=== PATIENT | female | born 1940 | race Caucasian/White ===

== ENCOUNTER 2017-06-11 15:09 | Inpatient (IN) | payer OTHER, MEDICARE ==
[~2017-06-11] VITALS: Ht 167.6 cm; Wt 70.3 kg
--- NOTE | 2017-06-11 15:27 | ED DYSPNEA/ASTHMA COMPLAINT ---
See Addendum History of Present Illness General Chief Complaint: Dyspnea (COPD, CHF, Other) Stated Complaint: BIBA FOR DIFFICULTY BREATHING Source: patient Exam Limitations: no limitations Vital Signs & Intake/Output Vital Signs & Intake/Output Vital Signs Date Time Temp Pulse Resp B/P B/P Pulse O2 O2 Flow FiO2 Mean Ox Delivery Rate 06/11 1734 129 162/77 06/11 1734 98 Nasal 2.0L Cannula 06/11 1612 115 06/11 1519 98.4 125 19 155/97 94 Room Air Triage Note: PT TO ED FROM URGENT CARE FOR EVAL OF SHORTNESS OF BREATH. RECEIVED ALBUTEROL TX AT . TACHYCARDIC IN 120S. 02 SAT 95% RA. FINISHED Z PACK AND PO STEROIDS 1ST WEEK OF MAY FOR BRONCHITIS. Triage Nurses Notes Reviewed? yes Onset: Gradual Duration: day(s): (1) Timing: recent history Severity: moderate Activities at Onset: none Prior Episodes/Possible Cause: occasional episodes Associated Symptoms: cough HPI: Patient is a 77-year-old female with history of lung cancer with resection, has been cancer free for 2 years now presenting to the emergency department via EMS with chief complaint of palpitations, shortness of breath, intermittently productive cough that started suddenly this morning. Positive malaise and generalized weakness. She went to the urgent care they did a strep test which was negative. Due to her fast heart rate and her oxygen levels they suggested she come to the emergency department for evaluation. Patient denying any chest pain. Patient was able to eat breakfast this morning without difficulty. Patient did have her influenza vaccine this year. Nothing seems to make the symptoms better, exertion makes the shortness of breath and palpitations worse. Denies any recent travel, no leg swelling. Denies hemoptysis. No history of blood clots. (Gena LIANG,Cynthia) Allergies Coded Allergies: ceftriaxone (From ROCEPHIN) (Severe, SWELLING ALL OVER, DARK RED ALL OVER, DYSPNEA 06/11/17) cefuroxime (From CEFTIN) (Severe, BODY SWELLING AND DARK RED ALL OVER, DYSPNEA 06/11/17) ciprofloxacin (From CIPRO) (Severe, SWELLING ALL OVER, DARK RED ALL OVER, DYSPNEA 06/11/17) gemifloxacin (From FACTIVE) (Intermediate, HIVES 06/11/17) aspirin (Mild, BLOODY NOSE 06/11/17) Reconcile Medications Budesonide/Formoterol Fumarate (Symbicort 160-4.5 Mcg Inhaler) 160 MCG-4.5 MCG/ ACTUATION HFA.AER.AD 2 PUF INH BID ASTHMA/COPD (Reported) Cetirizine HCl (All Day Allergy) 10 MG TABLET 1 TAB PO DAILY PRN ALLERGIES ( Reported) Levalbuterol HCl (Xopenex) 0.63 MG/3 ML VIAL.NEB 1 Vial INH/RAÚL TID PRN WHEEZING (Reported) Levalbuterol Tartrate (Xopenex Hfa) 45 MCG/ACTUATION HFA.AER.AD 2 PUF INH AD PRN ASTHMA/COPD (Reported) Olmesartan Medoxomil (Benicar) 40 MG TABLET 1 TAB PO DAILY BP (Reported) Tiotropium Britt (Spiriva Respimat) 1.25 MCG/ACTUATION MIST.INHAL 1 PUFF INH DAILY ASTHMA/COPD (Reported) Verapamil HCl 360 MG CAP24H.PEL 1 CAP PO DAILY HEART/BP (Reported) (Bogdan VELA,Peter Hagan) Past History Travel History Traveled to [place] past 21 day No Medical History Any Pertinent Medical History? 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 No (Gena LIANG,Cynthia) Review of Systems Review of Systems Constitutional: Reports: see HPI. Comments Review of systems: See HPI, All other systems negative. Constitutional, no chills fever or weight loss HEENT: No visual changes no Cardiovascular: No chest pain , orthopnea or ankle swelling Skin, no jaundice no rashes Respiratory: No hemoptysis GI: No nausea no vomiting : No dysuria No hematuria Muscle skeletal: no back pain, no neck pain, Neurologic: No numbness no confusion no headaches Psych: No stress anxiety or depression,. Heme/endocrine: No bruising no bleeding no polyuria or polydipsia Immunology: No splenectomy or history of AIDS (Cynthia Diaz) Physical Exam Physical Exam General Appearance: well developed/nourished, alert, awake, mild distress Respiratory: skin wheezing noted in the right upper and lower lobes. Left lung is clear to auscultation. Comments: Well-developed well-nourished person in no acute distress HEENT: Pupils equally round and reactive to light and accommodation. Nose is atraumatic. External auditory canal and Tympanic membranes clear. Pharynx moderately erythematous, petechiae noted on the hard palate, uvula midline. No tonsillar enlargement. No exudate. No swelling or edema. Neck: Supple, no lymphadenopathy, normal range of motion without pain or tenderness Back: Nontender Cardiovascular: Tachycardic rate and rhythms no murmurs rubs or gallops, normal JVP Respiratory: Chest nontender. mild respiratory distress.scant wheezing to auscultation to the right upper and lower lobes, left upper and lower lobe are clear to auscultation. Abdomen: Soft, nontender nondistended, no appreciable organomegaly. Normal bowel sounds. No ascites, no rebound or guarding. Extremity: No edema, no calf tenderness to palpation, normal and equal pulses. Neuro: Alert oriented x3 Skin: No appreciable rash on exposed skin, skin is warm and dry. Psych: Mood and affect is normal, memory and judgment is normal. Core Measures ACS in differential dx? Yes CVA/TIA Diagnosis No Sepsis Present: No Sepsis Focused Exam Completed? No (Cynthia Diaz) Progress Differential Diagnosis: asthma, AMI, bronchitis, costochondritis, CHF, COPD, musculoskeletal pain, pulmonary embolism, pneumonia, pneumothorax Plan of Care: Orders Procedure Date/time Status Heart Healthy Diet 06/12 B Active Patient Data 06/11 1834 Active EKG 06/11 1729 Active ED Holding Orders 06/11 1717 Active Admit to inpatient 06/11 1717 Active Vital Signs 06/11 1717 Active Code Status 06/11 1717 Active THROAT CULTURE W/QUICK STREP 06/11 1559 Active RAPID VIRAL INFLUENZA A 06/11 1550 Complete Telemetry/Accounting Manager Assistant Controller 06/11 1527 Active BLOOD CULTURE 06/11 1527 Active TROPONIN LEVEL 06/11 1527 Complete LACTIC ACID 06/11 152 Complete D-DIMER 06/11 1527 Complete COMPREHENSIVE METABOLIC PANEL 06/11 1527 Complete CBC WITHOUT DIFFERENTIAL 06/11 1527 Complete Intake & Output 06/11 1522 Active EKG 06/11 1513 Active Current Medications Sig/Tao Start time Last Medication Dose Stop Time Status Admin Sodium Chloride 1,000 ML ONCE ONE 06/11 1600 AC 06/11 (Normal Saline 0.9%) 06/11 2239 1610 Laboratory Tests 06/11/17 1827: Lactic Acid Cancelled 06/11/17 1545: Anion Gap 12, Estimated GFR > 60, BUN/Creatinine Ratio 22.9, Glucose 143 H, Lactic Acid 1.0, Calcium 9.4, Total Bilirubin 0.3, AST 23, ALT 30, Alkaline Phosphatase 105, Troponin I < 0.01, Total Protein 6.9, Albumin 4.3, Globulin 2.6 , Albumin/Globulin Ratio 1.7, D-Dimer High Sensitivty 201, CBC w Diff NO MAN DIFF REQ, RBC 4.17 L, MCV 96.6, MCH 32.3 H, MCHC 33.5, RDW 13.1, MPV 7.6, Gran % 93.7 H, Lymphocytes % 4.3 L, Monocytes % 1.7, Eosinophils % 0.1, Basophils % 0.2, Absolute Granulocytes 6.9 H, Absolute Lymphocytes 0.3 L, Absolute Monocytes 0.1, Absolute Eosinophils 0, Absolute Basophils 0 Microbiology 06/11 165 BLOOD: Blood Culture - CAN Cancelled: Cancelled via OE: Error 06/11 165 BLOOD: Blood Culture - CAN Cancelled: Cancelled via OE: Error 06/11 1558 NASOPHARYN: Influenza Virus A & B Rapid Smear - COMP 06/11 1545 BLOOD: Blood Culture - RECD 06/11 1530 BLOOD: Blood Culture - RECD Patient fell outpatient treatment, was on azithromycin by mouth. Came in for worsening symptoms. Patient has consolidation of right lower lobe. Patient requiring IV antibiotics. IV hydration will help with hyponatremia and tachycardia. Discussed with Dr. Perdomo and he agrees with plan. Diagnostic Imaging: Viewed by Me: Radiology Read. Discussed w/RAD: Radiology Read. Radiology Impression: PATIENT: REBECCA CROSS PRESENT AGE: 77 PATIENT ACCOUNT NO: [id number] : 38 LOCATION: [facility] [place] ORDERING PHYSICIAN: Cynthia LIANG SERVICE DATE: 06/11/17 EXAM TYPE: RAD - XRY-PORTABLE CHEST XRAY EXAMINATION: XR PORTABLE CHEST CLINICAL INFORMATION: Rule out pneumonia. Cough, tachycardia, and shortness of breath. COMPARISON: None TECHNIQUE: Portable frontal view of the chest was obtained. FINDINGS: There is elevation of the right hemidiaphragm and airspace opacity at the right lung base. This finding may represent atelectasis or consolidation. There is atelectasis at the left lung base. There is no large volume pleural effusion or pneumothorax. The left lung is hyperexpanded. The cardiomediastinal silhouette appears normal. The osseous structures are intact. IMPRESSION: 1. Elevation of the right hemidiaphragm with airspace opacity at the right lung base. This finding may represent atelectasis or consolidation. 2. Atelectasis at the left lung base. DICTATED BY: Marion Zimmerman MD DATE/TIME DICTATED:1548 [employer] ASSOCIATE:JULIA DATE/TIME TRANSCRIBED:06/11/171548 CONFIDENTIAL, DO NOT COPY WITHOUT APPROPRIATE AUTHORIZATION. <Electronically signed in Other Vendor System> SIGNED BY: Marion Zimmerman MD 06/11/17 4707 Initial ED EKG: sinus tachycardia 122 bpm (Cynthia Diaz) Departure Departure Time of Disposition: 1718 Condition: Stable Clinical Impression Primary Impression: Pneumonia Qualifiers: Pneumonia type: due to unspecified organism Laterality: right Lung location: lower lobe of lung Qualified Code: J18.1 - Lobar pneumonia, unspecified organism Secondary Impressions: Hyponatremia, Tachycardia Departure Forms: Customer Survey General Discharge Information (Cynthia Diaz) Departure Disposition: STILL A PATIENT Admission Note Spoke With: Bob VELA,Toyin Documentation of Exam: Documentation of any treatments & extenuating circumstances including Concerns Regarding Discharge (functional status, medication knowledge or non-compliance, living conditions, etc.) that warrant an admission rather than observation: [ FAILED OUTPATIENT TREATMENT, NEEDS IV ABX, IV FLUIDS, PULM CONSULT] PA/BEVERAGE HOST Co-Sign Statement Statement: ED Attending supervision documentation- [X] I saw and evaluated the patient. I have also reviewed all the pertinent lab results and diagnostic results. I agree with the findings and the plan of care as documented in the PA's/BEVERAGE HOST's documentation. [X] I have reviewed the ED Record and agree with the PA's/BEVERAGE HOST's documentation. [] Additions or exceptions (if any) to the PAs/BEVERAGE HOST's note and plan are summarized below: [SEE ABOVE NOTE] (Bogdan VELA,Peter Hagan) Critical Care Note Critical Care Note Critical Care Time: 30-74 min (Gena LIANG,Cynthia)
--- NOTE | 2017-06-11 15:59 | RADIOLOGY REPORT ---
EXAMINATION: XR PORTABLE CHEST CLINICAL INFORMATION: Rule out pneumonia. Cough, tachycardia, and shortness of breath. COMPARISON: None TECHNIQUE: Portable frontal view of the chest was obtained. FINDINGS: There is elevation of the right hemidiaphragm and airspace opacity at the right lung base. This finding may represent atelectasis or consolidation. There is atelectasis at the left lung base. There is no large volume pleural effusion or pneumothorax. The left lung is hyperexpanded. The cardiomediastinal silhouette appears normal. The osseous structures are intact. IMPRESSION: 1. Elevation of the right hemidiaphragm with airspace opacity at the right lung base. This finding may represent atelectasis or consolidation. 2. Atelectasis at the left lung base.
[2017-06-11 16:09] LABS: ABSOLUTE BASOPHIL COUNT 0 /CUMM (0.0-0.2); ABSOLUTE EOSINOPHIL COUNT 0 /CUMM (0.0-0.7); ABSOLUTE GRANULOCYTE CT 6.9 /CUMM (1.4-6.5); ABSOLUTE LYMPH COUNT 0.3 /CUMM (1.2-3.4); ABSOLUTE MONOCYTE COUNT 0.1 /CUMM (0.10-0.60); BASOPHIL % 0.2 % (0.0-2.0); EOSINOPHIL % 0.1 % (0-5); HEMATOCRIT 40.3 % (37-47); MEAN CORPUSCULAR HGB 32.3 PG (27.0-31.0); MEAN CORPUSCULAR HGB CONC 33.5 G/DL (33.0-37.0); MEAN CORPUSCULAR VOLUME 96.6 FL (81.0-99.0); MEAN PLATELET VOLUME 7.6 FL (7.4-10.4); PLATELET COUNT 253 /CUMM (130-400); RBC DISTRIBUTION WIDTH 13.1 % (11.5-14.5); RED BLOOD CELL CT 4.17 /CUMM (4.20-5.40); WHITE BLOOD CELL COUNT 7.4 /CUMM (4.8-10.8)
[2017-06-11 16:27] LABS: GRANULOCYTE % 93.7 % (42.2-75.2)
--- NOTE | 2017-06-11 17:28 | History & Physical ---
Tho VELA,[facility] 06/11/17 1727: General Information and HPI Allergies/Medications Allergies: Coded Allergies: gemifloxacin (From FACTIVE) (Intermediate, HIVES 06/11/17) aspirin (Mild, BLOODY NOSE 06/11/17) cefuroxime (From CEFTIN) (GI UPSET 06/11/17) ciprofloxacin (From CIPRO) (GI UPSET 06/11/17) Past History Travel History Traveled to [place] past 21 day No Medical History Neurological: NONE EENT: NONE Cardiovascular: hypertension Respiratory: BRONICHITIS Gastrointestinal: NONE Hepatic: NONE Renal: NONE Musculoskeletal: NONE Psychiatric: NONE Endocrine: NONE Blood Disorders: NONE Cancer(s): LUNG CA WELL DRILLER/Reproductive: NONE Influenza Vaccine: 01/20/17 Surgical History Surgical History: lobectomy Past Family/Social History Psychosocial History ETOH Use: denies use Illicit Drug Use: denies illicit drug use Core Measures/Misc (01/05) Cerebrovascular Accident CVA/TIA Diagnosis: No
--- NOTE | 2017-06-11 17:29 | History & Physical ---
Bladimir VELA,[facility] 06/11/17 8068: General Information and HPI MD Statement: I have seen and personally examined REBECCA CROSS and documented this H& P. The patient is a 77 year old F who presented with a patient stated chief complaint of [shortness of breath]. Source of Information: patient Exam Limitations: no limitations History of Present Illness: Mrs. Jeffrey is a 77-year-old lady with past medical history significant for COPD, asthma, hypertension and lung cancer status post resection(2016) presents with shortness of breath and cough which started this morning. According to the patient, she was in her usual state of health until this morning when she started having cough with clear color sputum production. Around afternoon she was going upstairs when she all of a sudden started feeling short of breath and weak. She felt something is wrong with her so instead of using her inhalers/nebulizers she went to the urgent care clinic where she was given a neb treatment and was sent to the [facility]. Also reports sore throat but denies any fever/chills, orthopnea, PND, sick contacts, recent travel or new rash. She did receive her flu like vaccine this year. Patient had acute bronchitis 2 weeks ago for which she completed a course of Z-Iain and prednisone. Allergies/Medications Allergies: Coded Allergies: ceftriaxone (From ROCEPHIN) (Severe, SWELLING ALL OVER, DARK RED ALL OVER, DYSPNEA 06/11/17) cefuroxime (From CEFTIN) (Severe, BODY SWELLING AND DARK RED ALL OVER, DYSPNEA 06/11/17) ciprofloxacin (From CIPRO) (Severe, SWELLING ALL OVER, DARK RED ALL OVER, DYSPNEA 06/11/17) gemifloxacin (From FACTIVE) (Intermediate, HIVES 06/11/17) aspirin (Mild, BLOODY NOSE 06/11/17) Home Med list Amoxicillin/Potassium Clav (Augmentin 875-125 Tablet) 875 MG-125 MG TABLET 1 TAB PO BID PNEUMONIA Budesonide/Formoterol Fumarate (Symbicort 160-4.5 Mcg Inhaler) 160 MCG-4.5 MCG/ ACTUATION HFA.AER.AD 2 PUF INH BID ASTHMA/COPD (Reported) Cetirizine HCl (All Day Allergy) 10 MG TABLET 1 TAB PO DAILY PRN ALLERGIES ( Reported) Levalbuterol HCl (Xopenex) 0.63 MG/3 ML VIAL.NEB 1 Vial INH/RAÚL TID PRN WHEEZING (Reported) Levalbuterol Tartrate (Xopenex Hfa) 45 MCG/ACTUATION HFA.AER.AD 2 PUF INH AD PRN ASTHMA/COPD (Reported) Olmesartan Medoxomil (Benicar) 40 MG TABLET 1 TAB PO DAILY BP (Reported) Prednisone 10 MG TABLET 1 TAB PO BID COPD On Take 06/14-06/16 40 MG 06/17-06/19 30 MG 06/20-06/22 20 MG 06/23-06/25 10 MG Then Stop Tiotropium Reasnor (Spiriva Respimat) 1.25 MCG/ACTUATION MIST.INHAL 1 PUFF INH DAILY ASTHMA/COPD (Reported) Verapamil HCl 360 MG CAP24H.PEL 1 CAP PO DAILY HEART/BP (Reported) Past History Travel History Traveled to [place] past 21 day No Medical History Neurological: NONE EENT: NONE Cardiovascular: hypertension Respiratory: asthma, COPD Gastrointestinal: NONE Hepatic: NONE Renal: NONE Musculoskeletal: NONE Psychiatric: NONE Endocrine: NONE Blood Disorders: NONE Cancer(s): LUNG CA BANKING SERVICES OFFICER/Reproductive: NONE Influenza Vaccine: 01/20/17 Surgical History Surgical History: none ((2016)), lobectomy Past Family/Social History Psychosocial History ETOH Use: denies use Illicit Drug Use: denies illicit drug use Review of Systems Review of Systems Constitutional: Reports: no symptoms. EENTM: Reports: throat pain. Cardiovascular: Reports: palpitations. Respiratory: Reports: cough, short of breath, sputum production. GI: Reports: no symptoms. Genitourinary: Reports: no symptoms. Musculoskeletal: Reports: no symptoms. Skin: Reports: no symptoms. Neurological/Psychological: Reports: no symptoms. Hematologic/Endocrine: Reports: no symptoms. Immunologic/Allergic: Reports: no symptoms. All Other Systems: Reviewed and Negative Exam & Diagnostic Data Last 24 Hrs of Vital Signs/I&O Vital Signs Date Time Temp Pulse Resp B/P B/P Pulse O2 O2 Flow FiO2 Mean Ox Delivery Rate 06/11 2100 97.2 114 19 155/75 97 Nasal Cannula 06/11 2034 113 96 Nasal 2.0L Cannula 06/11 1734 129 162/77 06/11 1734 98 Nasal 2.0L Cannula 06/11 1612 115 06/11 1519 98.4 125 19 155/97 94 Room Air Intake & Output 06/11 1600 06/11 0800 06/11 0000 Intake Total Output Total Balance Patient 155 lb Weight Weight Reported by Patient Measurement Method Physical Exam General Appearance Alert, Oriented X3, Cooperative Skin No Rashes, No Breakdown HEENT Atraumatic, PERRLA, EOMI, Mucous Membr. moist/pink, pharynx erythematous Neck Supple, No JVD, No thryomegaly Cardiovascular Regular Rate, Normal S1, Normal S2 Lungs Clear to Auscultation, decreased breath sounds on the left Abdomen Normal Bowel Sounds, Soft, No Tenderness Extremities No Clubbing, No Cyanosis, No Edema, Normal Pulses Last 24 Hrs of Labs/Angel: Laboratory Tests 06/11/17 1827: Lactic Acid Cancelled 06/11/17 1545: Anion Gap 12, Estimated GFR > 60, BUN/Creatinine Ratio 22.9, Glucose 143 H, Lactic Acid 1.0, Calcium 9.4, Total Bilirubin 0.3, AST 23, ALT 30, Alkaline Phosphatase 105, Troponin I < 0.01, Total Protein 6.9, Albumin 4.3, Globulin 2.6 , Albumin/Globulin Ratio 1.7, D-Dimer High Sensitivty 201, CBC w Diff NO MAN DIFF REQ, RBC 4.17 L, MCV 96.6, MCH 32.3 H, MCHC 33.5, RDW 13.1, MPV 7.6, Gran % 93.7 H, Lymphocytes % 4.3 L, Monocytes % 1.7, Eosinophils % 0.1, Basophils % 0.2, Absolute Granulocytes 6.9 H, Absolute Lymphocytes 0.3 L, Absolute Monocytes 0.1, Absolute Eosinophils 0, Absolute Basophils 0 Microbiology 06/11 1651 BLOOD: Blood Culture - CAN Cancelled: Cancelled via OE: Error 06/11 165 BLOOD: Blood Culture - CAN Cancelled: Cancelled via OE: Error 06/11 1558 NASOPHARYN: Influenza Virus A & B Rapid Smear - COMP 06/11 1545 BLOOD: Blood Culture - RECD 06/11 1530 BLOOD: Blood Culture - RECD Diagnostic Data CXR Results IMPRESSION: 1. Elevation of the right hemidiaphragm with airspace opacity at the right lung base. This finding may represent atelectasis or consolidation. 2. Atelectasis at the left lung base. Other Results CTA Chest IMPRESSION: 1. No evidence of PE. No aortic aneurysm or dissection seen. 2. Emphysema with left upper lobe pleural-based nodule and a 1.4 cm ground-glass density left upper lobe anteriorly. In addition, there is an adjacent parenchymal thickening likely scar or atelectasis in the left upper lobe anteriorly. Underlying primary lung tumor is not excluded. Recommend correlation with old CT chest or chest x-rays, if available. If not, recommend CT PET exam for further evaluation. Assessment/Plan Assessment: Mrs. Jeffrey is a 77-year-old lady with past medical history significant for COPD, asthma, hypertension and lung cancer status post resection(2016) presents with shortness of breath and cough which started this morning. A/P; Will admit the patient to Telemetry floor. 1. Shortness of Breath; Likely secondary to PD exacerbation from pneumonia. Patient does not have fever or white count but complains of SOB and productive cough with CXR showing bibasilar atelactasis. - Will start the patient on IV Unasyn. Patient was given ceftriaxone and azithromycin in the ED but were stopped due to an allergic reaction to ceftriaxone(shivering, pruritis and generalized raised erythematous papules). 2. continue Spiriva and symbicort. 3. Chloraseptic lozanges for sore throat. 4. Robitussin as needed for cough. 5. CTA to rule out PE given SOB and tachycardia. 2. 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 - Never seen a cardioloist in the past. - Cardiology Consult. - Continue Verapamil 360mg daily. - Echocardiogram 3. Hypertension; - Continue Cozar. 4. Hyponatremia; Na level 128. - Patient recieved 2L of normal saline in the ER. - Repeat BP in a.m. DVT Prophylaxis; S/C Lovenox Patient is DNR/DNI As Ranked By This Provider Problem List: 1. Pneumonia Qualifiers Pneumonia type: due to unspecified organism Laterality: right Lung location: lower lobe of lung Qualified Code: J18.1 - Lobar pneumonia, unspecified organism 2. Tachycardia Core Measures/Misc (01/05) Acute Coronary Syndrome ACS Diagnosis: No Congestive Heart Failure Congestive Heart Failure Diagnosis No Cerebrovascular Accident CVA/TIA Diagnosis: No VTE (View Protocol) VTE Risk Factors Age>40 No Mechanical VTE Prophylaxis d/t N/A MechProphylax Ordered No VTE Pharm Prophylaxis d/t NA PharmProphylax ordered Sepsis (View protocol) Sepsis Present: No Aicha Faustin MD 06/11/172109: Resident Review Statement Resident Statement: examined this patient, discussed with post graduate internship, agreed with post graduate internship Other Findings: 77-year-old lady with past medical history of COPD, asthma, hypertension and lung cancer status post resection (2016). She presents with shortness of breath and cough which started this morning. Her cough was productive of clear sputum and she began feeling short of breath with generalized weakness and mildly this morning. On account of her symptoms she went to the urgent care clinic and she was given nebulizer treatment with minimal relief. She was given a nebulizer treatment but on account of her fast heart rate and low oxygen level in the urgent care, she was sent to the ER for further evaluation. She admits to sore throat but denies fever/chills, orthopnea, PND, sick contacts, recent travel or new rash. She did receive her flu like vaccine this year. Of note patient had acute bronchitis 2 weeks ago and completed a course of Z-Iain and prednisone. Patient reports she has has a known history of tachycardia and was placed on verapamil by her primary care physician on account of this. She reportedly has never seen a field sales consultant in the past for this. Vital signs in the ER showed temperature of 90 8.4F, pulse of 125, respiratory rate 19, blood pressure 155/97 mmHg, pulse oximetry of 94% on room air. Physical Exam at presentation General Appearance: Alert, Oriented X3, Cooperative, mild respiratory distress Skin: No Rashes, No Breakdown HEENT: Atraumatic, PERRLA, EOMI, Mucous Membr. moist/pink, pharynx erythematous Neck: Supple, No JVD, No thryomegaly Cardiovascular: Regular Rate, Normal S1, Normal S2 Lungs: Clear to Auscultation, decreased breath sounds and fine crepitations in left lung base Abdomen: Normal Bowel Sounds, Soft, No Tenderness Extremities: No Clubbing, No Cyanosis, No Edema, Normal Pulses Labs significant for hyponatremia with sodium 128, potassium 4.7, creatinine 0.7 , lactic acid 1, troponin<0.01. D-dimer negative at 201. CBC shows WBC of 7.4, hemoglobin 13.5, platelet 253. Rapid flu test was negative and blood cultures are pending. Chest x-ray showed bibasilar atelectasis and elevation of the right hemidiaphragm. Impression 1. Community acquired pneumonia 2. Sinus tachycardia 3. Hyponatremia 4. Hypertension 5. History of COPD 6. History of right lower lobe lung cancer status post resection 2016 Plan * Admit to telemetry * Patient was started on IV ceftriaxone but had a reaction to ceftriaxone with pruritus, shortness of breath and red rash and needed diphenhydramine and Solu- Medrol administration. On account of this, and her prior reported allergies to ciprofloxacin, ofloxacin and cefuroxime, her antibiotic choices are very limited. We'll start IV Unasyn 1.5 g every 6 hours and watch closely for any reaction to this. * And discontinue IV is azithromycin after this one dose * No need for steroids at this time * Collect sputum cultures * Follow-up blood cultures * CT chest done was negative for pulmonary embolism but did show emphysema and multiple opacities protocol will call pulmonology consult in the morning. Given her past history of lung cancer we will also send workup for hyponatremia with serum osmolality, urine osmolality, urine lites * Pulmonology consult in the morning for hypoxemic respiratory failure and evaluation of opacities on CT chest * Doppler ultrasound of legs * Serial EKGs and troponins to rule out an acute coronary syndrome * Cardiology consultation in the morning for evaluation of sinus tachycardia * Patient reports she has has a known history of tachycardia and was placed on verapamil by her primary care physician on account of this. She reportedly has never seen a field sales consultant in the past for this. * Echocardiogram * Continue verapamil for sinus tachycardia * Continue Cozaar for hypertension * DVT prophylaxis with subcutaneous Lovenox * After discussion with patient, she states that her CODE STATUS is DNR/DNI as she doesn't want intubation and is consistent with her advanced directives Kev VELA, [facility] 06/11/17 1137: Attending MD Review Statement Attending Statement Attending MD Statement: examined this patient, discuss w/resident/PA/FUEL MANAGEMENT HANDLER, agreed w/resident/PA/FUEL MANAGEMENT HANDLER, reviewed images, amended to note Attending Assessment/Plan: 77 yo F with h/o COPD, HTN, stage 1 lung cancer s/p resection, tachycardia on verapamil, who was recently treated for bronchitis with azithro and prednisone ( Feb 5th), developed sudden onset cough productive of clear phlegm, dyspnea, weakness and palpitations this AM. She went to the Urgent care, received albuterol with minimal relief, strep throat was negative but given her tachycardia and hypoxia, she was sent to [facility]. Patient follows Dr. Nichols (Pulm) and Dr. Fletcher Perry (Oncology). She has never seen a field sales consultant but has undergone a stress test few years ago which was normal. She reports multiple medication allergies. While in the ER, she was diagnosed with pneumonia, and received IV ceftriaxone following by eboni, but she developed redness, flushing and itching with a sense of difficulty breathing - ?allergic reaction to ceftriaxone. She was given benadryl and solumedrol with resolution of symptoms. IV Azithro was resumed and completed. Vitals: afebrile, HR 120-130's, BP 162/77, sats 96% on 2L. Exam: AAO, in mild distress, dry mucous membranes, Neck supple, Chest reduced air entry, bibasilar crepitations, Heart S1S2 regular, tachycardic, Abd soft, NT , LE trace edema. Labs: no leukocytosis, negative d-dimer, Na 128, bicarb 21, glucose 143, trop neg. UA clear. CXR: elevation right hemidiaphragm with airspace opacity right lung base, atelectasis or consolidation, atelectasis left lung base. EKG: sinus tachycardia, Qtc 418. Assessment and plan: 1. Right lower lobe pneumonia, community acquired 2. Hyponatremia 3. History of lung cancer s/p resection 4. Sinus tachycardia 5. Concern for PE given h/o lung cancer, sudden onset dyspnea and tachycardia 6. h/o COPD with possible exacerbation - Admit to Telemetry - Monitor for arrhythmias - Serial EKG and troponin to rule out ACS - Obtain echo and Cardio consult - Patient tells me that she always has a fast pulse, is on verapamil for that. - We will get a CTA chest to rule out PE. - TRC nebs, incentive spirometry - Panculture - IV Unasyn (given reaction to ceftriaxone) plus IV azithromycin. Unable to give fluoroquinalones. - IV solumedrol with rapid prednisone taper - Continue symbicort, resume spiriva upon discharge. CTA chest: diffuse centrilobular and paraseptal emphysema, moderate pulmonary cyst in left upper lobe, several smaller cysts in left lower lobe, 6 mm nodule left upper lobe, atelectasis and scarring in both lung bases. Underlying tumor cannot be excluded. No pulmonary emboli. - Consult Pulmonary, obtain records from Dr. Nichols (regarding previous CT imaging). - Work up hyponatremia urine lytes, urine and serum osmolality. Patient received 2 L NS in the ER, will trend sodium levels. - Continue verapamil and benicar. DVT ppx Lovenox. DNR/I.
[2017-06-11] MEDS ORDERED: BENICAR40 M1 PO (18:19)
[2017-06-11] MEDS ORDERED: VERAPAMIL HCL360 M1 PO (18:19)
[2017-06-11] MEDS ORDERED: XOPENEX HFA15 GM INH (18:23)
[2017-06-11] MEDS ORDERED: SPIRIVA RESPIMAT4 G1 INH (18:23)
[2017-06-11] MEDS ORDERED: SYMBICORT 16010.2 GM INH (18:24)
[2017-06-11] MEDS ORDERED: XOPENEX0.63 MG/1 INH/SOL (18:24)
[2017-06-11] MEDS ORDERED: ALL DAY ALLERGY10 MG PO (18:26)
--- NOTE | 2017-06-11 21:29 | CT SCAN REPORT ---
EXAMINATION: CT ANGIOGRAM CHEST CLINICAL INFORMATION: Shortness of breath, cough and productive sputum. COMPARISON: Chest x-ray 06/11/2017. TECHNIQUE: Multiple axial images were obtained through the chest after the administration of 95 mL of Optiray 320 intravenous contrast. Images were reviewed on a dedicated 3-D workstation. DLP: 294 mGy-cm FINDINGS: There is diffuse centrilobular and paraseptal emphysema. A moderate-sized pulmonary cyst is seen in the left upper lobe medially. Several smaller cysts are seen in the left lower lobe. There is a 6 mm nodule, pleural-based left upper lobe, axial image 84, thick parenchymal ill-defined density/scarring measuring 1.8 x 0.8 cm, and adjacent ground-glass density anteriorly measuring 1.4 cm on axial image 138, series 2. There is likely atelectasis or scarring in both lung bases. There is small right pleural effusion without pleural thickening or calcified plaques. The left pleura is minimally thickened at the lung base. The thyroid lobes are symmetrical and normal. The pulmonary artery and its branches are well opacified. The thoracic aorta is normal in caliber. No aneurysm or dissection seen. There is atherosclerotic calcification of the thoracic arch. The central trachea and the bronchi are widely patent. There is no abnormal size mediastinal or hilar lymph nodes seen. The heart size is normal. There is no pericardial effusion. Visualized liver, spleen, pancreas and bilateral adrenal glands are unremarkable. There are no radiopaque gallstones. No lytic or sclerotic process seen. As mild spondylosis throughout dorsal spine. IMPRESSION: 1. No evidence of PE. No aortic aneurysm or dissection seen. 2. Emphysema with left upper lobe pleural-based nodule and a 1.4 cm ground-glass density left upper lobe anteriorly. In addition, there is an adjacent parenchymal thickening likely scar or atelectasis in the left upper lobe anteriorly. Underlying primary lung tumor is not excluded. Recommend correlation with old CT chest or chest x-rays, if available. If not, recommend CT PET exam for further evaluation.
[2017-06-11 21:55] VITALS: BP 156/78
--- NOTE | 2017-06-11 22:48 | Admission Certification ---
Admission Certification Certification Statement - As attending physician, I certify that at the time of - admission, based on clinical presentation, severity of - symptoms, need for further diagnostic testing and - therapeutic interventions, and risk of adverse outcomes - without in-hospital treatment, in my clinical assessment, - this patient requires an acute hospital stay for a minimum - of two nights or longer. I have also considered psychsocial - factors such as support system, advanced age, financial - issues, cognitive issues, and failed out-patient treatments, - past re-admission history, safety of patient, and lack of - compliance as applicable. Specific rationale supporting this admission is: Community acquired pneumonia, hyponatremia.
[2017-06-12 05:46] LABS: ABSOLUTE BASOPHIL COUNT 0 /CUMM (0.0-0.2); ABSOLUTE EOSINOPHIL COUNT 0 /CUMM (0.0-0.7); ABSOLUTE GRANULOCYTE CT 3.5 /CUMM (1.4-6.5); ABSOLUTE LYMPH COUNT 0.4 /CUMM (1.2-3.4); ABSOLUTE MONOCYTE COUNT 0.1 /CUMM (0.10-0.60); BASOPHIL % 0.1 % (0.0-2.0); EOSINOPHIL % 0 % (0-5); GRANULOCYTE % 88.8 % (42.2-75.2); MEAN CORPUSCULAR HGB 32.8 PG (27.0-31.0); MEAN CORPUSCULAR HGB CONC 34.2 G/DL (33.0-37.0); MEAN PLATELET VOLUME 7.3 FL (7.4-10.4); PLATELET COUNT 232 /CUMM (130-400); RBC DISTRIBUTION WIDTH 12.8 % (11.5-14.5); RED BLOOD CELL CT 3.65 /CUMM (4.20-5.40)
[2017-06-12 06:46] VITALS: BP 122/40
--- NOTE | 2017-06-12 07:34 | PN- Housestaff ---
Bladimir VELA,[facility] 06/12/17 0734: Subjective Follow-up For: Pneumonia Sinus tachycardia Tele-Events Since Last Visit: Normal sinus rhythm Heart rate 91-114 No Overnight events noted Subjective: Patient states her shortness of breath has slightly improved compared to yesterday but she feels congested and is not able to bring up any phlegm with the cough. Denies any chest pain, palpitations, fever/chills or any overnight events. Review of Systems Constitutional: Reports: no symptoms. EENTM: Reports: no symptoms. Cardiovascular: Reports: orthopena. Respiratory: Reports: cough, short of breath. Gastrointestinal: Reports: no symptoms. Genitourinary: Reports: no symptoms. Musculoskeletal: Reports: no symptoms. Skin: Reports: no symptoms. Neurological/Psychological: Reports: no symptoms. Hematologic/Endocrine: Reports: no symptoms. Immunologic/Allergic: Reports: no symptoms. Objective Last 24 Hrs of Vital Signs/I&O Vital Signs Date Time Temp Pulse Resp B/P B/P Pulse O2 O2 Flow FiO2 Mean Ox Delivery Rate 06/12 1432 97.1 98 20 143/65 95 Room Air 06/12 1031 Nasal 2.0L Cannula 06/12 0956 100 138/50 06/12 0900 99 Nasal 2.0L Cannula 06/12 0800 99 Nasal 1.0L Cannula 06/12 0646 97.8 91 20 122/40 95 Room Air 06/12 0048 96 Nasal 2.0L Cannula 06/11 2320 117 06/11 2320 118 06/11 2155 97.6 114 19 156/78 96 Nasal 2.0L Cannula 06/11 2155 96 Nasal 2.0L Cannula 06/11 2100 97.2 114 19 155/75 97 Nasal Cannula 06/11 2034 113 96 Nasal 2.0L Cannula 06/11 1734 129 162/77 06/11 1734 98 Nasal 2.0L Cannula 06/11 1612 115 Intake & Output 06/12 1600 06/12 0800 06/12 0000 Intake Total 700 330 150 Output Total 300 200 Balance 400 330 -50 Intake, IV 250 130 Intake, Oral 450 200 150 Output, Urine 300 200 Patient 155 lb Weight Weight Reported by Patient Measurement Method Physical Exam General Appearance: Alert, Oriented X3, Cooperative, No Acute Distress Skin: No Rashes, No Breakdown Cardiovascular: Regular Rate, Normal S1, Normal S2 Lungs: decreased breath sounds bilaterally Abdomen: Normal Bowel Sounds, Soft, No Tenderness Extremities: No Clubbing, No Cyanosis, No Edema Current Medications: Current Medications Sig/Tao Start time Last Medication Dose Route Stop Time Status Admin Acetaminophen 650 MG Q6P PRN 06/11 2130 AC PO Albuterol Sulfate 3 ML EVERY 4 HRS/AWAKE 06/12 1200 AC 06/12 INH 1213 Albuterol Sulfate 3 ML ONCE ONE 06/12 0015 DC 06/12 INH 06/12 0016 0018 Ampicillin Sodium/ 1,500 MG Q6 06/12 0600 AC 06/12 Sulbactam Sodium IV 0615 Sodium Chloride 100 ML Ampicillin Sodium/ 1,500 MG Q6H 06/11 2037 DC 06/12 Sulbactam Sodium IV 0053 Sodium Chloride 100 ML Azithromycin 500 MG DAILY 06/12 1000 AC 06/12 Dextrose/Water 250 ML IV 0957 Azithromycin 500 MG ONCE ONE 06/11 1700 DC 06/11 Dextrose/Water 250 ML IV 06/11 1759 1715 Benzocaine/Menthol 1 TAMAR Q2P PRN 06/11 1915 AC 06/11 PO 2232 Budesonide/ 2 PUF BID 06/11 2200 AC 06/12 Formoterol Fumarate INH 0958 Ceftriaxone Sodium 0 .STK-MED ONE 06/11 1707 DC .ROUTE Ceftriaxone Sodium 1,000 MG ONCE ONE 06/11 1700 DC 06/11 IV 06/11 1701 1708 Diphenhydramine HCl 50 MG ONCE ONE 06/11 1730 DC 06/11 IV 06/11 1731 1726 Diphenhydramine HCl 0 .STK-MED ONE 06/11 1728 DC .ROUTE Enoxaparin Sodium 40 MG DAILY@2100 06/11 2122 AC SC Guaifenesin 600 MG Q12 PRN 06/12 1345 AC PO Ipratropium [place] 2.5 ML ONCE ONE 06/12 0015 DC 06/12 INH 06/12 0016 0018 Loratadine 10 MG DAILY 06/12 1000 AC PO Losartan Potassium 50 MG DAILY 06/12 1000 DC PO Losartan Potassium 50 MG DAILY 06/11 2315 AC 06/11 PO 2320 Methylprednisolone 40 MG Q12 06/12 1000 AC 06/12 IV 0954 Methylprednisolone 125 MG ONCE ONE 06/11 1730 DC 06/11 IV 06/11 1731 1729 Methylprednisolone 0 .STK-MED ONE 06/11 1728 DC .ROUTE Morphine Sulfate 2 MG Q4P PRN 06/11 2130 AC IV Patient Medication 1 ED ONE ONE 06/12 1200 DC Teaching ED 06/12 1201 Sodium Chloride 1,000 ML BOLUS ONE 06/11 1700 DC 06/11 IV 06/11 1759 1729 Sodium Chloride 1,000 ML ONCE ONE 06/11 1600 DC 06/11 IV 06/11 2239 1610 Tiotropium [place] 1 PUF DAILY 06/12 1000 AC 06/12 INH 0958 Verapamil HCl 360 MG DAILY 06/12 1000 DC PO Verapamil HCl 360 MG DAILY 06/11 2315 AC 06/12 PO 0956 Last 24 Hrs of Lab/Angel Results Last 24 Hrs of Labs/Mics: Laboratory Tests 06/12/17 0520: Troponin I 0.07, TSH 0.291, Free T4 1.26, Cortisol AM Sample 4.4 L 06/12/17 0520: Anion Gap 8, Estimated GFR > 60, BUN/Creatinine Ratio 20.0, CBC w Diff NO MAN DIFF REQ, RBC 3.65 L, MCV 96.0, MCH 32.8 H, MCHC 34.2, RDW 12.8, MPV 7.3 L, Gran % 88.8 H, Lymphocytes % 9.4 L, Monocytes % 1.7, Eosinophils % 0, Basophils % 0.1, Absolute Granulocytes 3.5, Absolute Lymphocytes 0.4 L, Absolute Monocytes 0.1, Absolute Eosinophils 0, Absolute Basophils 0 06/11/170: Urine Color STRAW, Urine Clarity CLEAR, Urine pH 6.0, Ur Specific [place] 1.010, Urine Protein NEG, Urine Ketones NEG, Urine Nitrite NEG, Urine Bilirubin NEG, Urine Urobilinogen 0.2, Ur Leukocyte Esterase NEG, Ur Microscopic SEDIMENT EXAMINED, Urine RBC 1-3, Urine WBC RARE, Urine Hemoglobin TRACE-INTACT, Urine Glucose NEG 06/11/17 2350: Urine Osmolality 264 L, Ur Random Creatinine 21.0, Ur Random Sodium 35, Ur Random Potassium 30.5, Fraction Sodium Excret 0.9 06/11/17 2317: Troponin I 0.03 06/11/17 1827: Lactic Acid Cancelled 06/11/17 1545: Anion Gap 12, Estimated GFR > 60, BUN/Creatinine Ratio 22.9, Glucose 143 H, Serum Osmolality 275 L, Lactic Acid 1.0, Calcium 9.4, Total Bilirubin 0.3, AST 23, ALT 30, Alkaline Phosphatase 105, Troponin I < 0.01, Total Protein 6.9, Albumin 4.3, Globulin 2.6, Albumin/Globulin Ratio 1.7, D-Dimer High Sensitivty 201, CBC w Diff NO MAN DIFF REQ, RBC 4.17 L, MCV 96.6, MCH 32.3 H, MCHC 33.5, RDW 13.1, MPV 7.6, Gran % 93.7 H, Lymphocytes % 4.3 L, Monocytes % 1.7, Eosinophils % 0.1, Basophils % 0.2, Absolute Granulocytes 6.9 H, Absolute Lymphocytes 0.3 L, Absolute Monocytes 0.1, Absolute Eosinophils 0, Absolute Basophils 0 Microbiology 06/11 2329 LOWER RESP: Respiratory Culture - CAN Cancelled: SPECIMEN NOT RECEIVED IN LABORATORY 06/11 2329 LOWER RESP: Gram Stain - CAN Cancelled: SPECIMEN NOT RECEIVED IN LABORATORY 06/11 223 URINE ROUT: Urine Culture - RECD 06/11 165 BLOOD: Blood Culture - CAN Cancelled: Cancelled via OE: Error 06/11 1652 BLOOD: Blood Culture - CAN Cancelled: Cancelled via OE: Error 06/11 1558 NASOPHARYN: Influenza Virus A & B Rapid Smear - COMP 06/11 1545 BLOOD: Blood Culture - RES 06/11 1530 BLOOD: Blood Culture - RES Assessment/Plan Assessment: Mrs. Jeffrey is a 77-year-old lady with past medical history significant for COPD, asthma, hypertension and lung cancer status post resection(2016) presents with shortness of breath and cough which started this morning. A/P; 1. Shortness of Breath; - Continue IV Unasyn(Allergic reaction to ceftriaxone). - continue Spiriva and symbicort. - Chloraseptic lozanges for sore throat. - Mucinex as needed for cough and congestion - CTA negative for any PE, but was shown to have a 6 mm left upper lobe pleural- based nodule, per the patient she is already aware of the nodules and her electrical accessories assembler was taking care of it. Awaiting records from the electrical accessories assembler. 2. Sinus Tachycardia; -Likely secondary to physiologic stress from her difficulty breathing and from the beta agonists she is taking for her COPD. - Appreciate cardiology recommendations. - Echocardiogram pending. 3. Hyponatremia; sodium level remains the same at 128. - Low serum and urine osmolality. - Normal TSH and free T4. Borderline low serum cortisol level of 4.4. - We will repeat BP in the evening. - Start the patient on 1200 ml fluid restriction. 4. Hypertension; - Continue Cozar. DVT Prophylaxis; S/C Lovenox Patient is DNR/DNI Problem List: 1. Pneumonia 2. Tachycardia 3. Hyponatremia Pain Ratin Pain Location: None Pain Goal: Remain pain free Pain Plan: Pain pathway Tomorrow's Labs & Rationales: BEP(hyponatremia) Bob VELA,[place] 06/12/17 1618: Attending MD Review Statement Attending Statement Attending MD Statement: examined this patient, discuss w/resident/PA/CASHIER PAYMENTS RECEIVED, agreed w/resident/PA/CASHIER PAYMENTS RECEIVED, reviewed EMR data (avail) Attending Assessment/Plan: Patient seen and examined. Plan of care discussed with the medical team and the patient. Available lab work and radiology test reports were reviewed. Patient has been afebrile. She has been intermittently tachycardic but no respiratory distress was reported. Saturation on room air is 95%. Chest exam shows scattered crepitation especially in the lower zones. No wheezing is heard. Abdomen soft nontender. No peripheral edema is noted. WBC count is 4 and sodium is 128. 2 sets of troponin have been negative. TSH and free T4 within normal limits. Cortisol is 4.4. CT findings are were noted.1. No evidence of PE. No aortic aneurysm or dissection seen. 2. Emphysema with left upper lobe pleural-based nodule and a 1.4 cm ground-glass density left upper lobe anteriorly. In addition, there is an adjacent parenchymal thickening likely scar or atelectasis in the left upper lobe anteriorly. Underlying primary lung tumor is not excluded. Recommend correlation with old CT chest or chest x-rays, if available. If not, recommend CT PET exam for further evaluation. Assessment and plan Pneumonia- continue current antibiotics; no need to repeat CBC this point Lung nodule scarring and groundglass opacities noted on CT scan- patient history of a right lung nodule resection. She follows up with her thoracic surgeon and electrical accessories assembler elsewhere. She is in process of switching her electrical accessories assembler. After to see a electrical accessories assembler and the CT surgery here however she wishes to go with her doctors in [facility] Please obtain report of loss CAT scan patient had. I did inform patient about CT findings and she is aware that she will need to follow closely with the electrical accessories assembler and CT surgery.
--- NOTE | 2017-06-12 11:32 | Cons- Cardiology ---
General Information and HPI Consulting Request Date of Consult: 06/12/17 Requested By: Bob VELA,[place] History of Present Illness: This patient is a 77 year old female with history of COPD, hypertension and lung cancer status post lobectomy. At her baseline, she does have some shortness of breath but over the past several days this became more severe prompting her presentation to the ER. She also has a cough productive of clear sputum but she denies fever or chills. She does have some chest discomfort without any clear exertional component to it. Otherwise she denies lightheadedness but does have intermittent palpitations. Allergies/Medications Allergies: Coded Allergies: ceftriaxone (From ROCEPHIN) (Severe, SWELLING ALL OVER, DARK RED ALL OVER, DYSPNEA 06/11/17) cefuroxime (From CEFTIN) (Severe, BODY SWELLING AND DARK RED ALL OVER, DYSPNEA 06/11/17) ciprofloxacin (From CIPRO) (Severe, SWELLING ALL OVER, DARK RED ALL OVER, DYSPNEA 06/11/17) gemifloxacin (From FACTIVE) (Intermediate, HIVES 06/11/17) aspirin (Mild, BLOODY NOSE 06/11/17) Home Med List: Budesonide/Formoterol Fumarate (Symbicort 160-4.5 Mcg Inhaler) 160 MCG-4.5 MCG/ ACTUATION HFA.AER.AD 2 PUF INH BID ASTHMA/COPD (Reported) Cetirizine HCl (All Day Allergy) 10 MG TABLET 1 TAB PO DAILY PRN ALLERGIES ( Reported) Levalbuterol HCl (Xopenex) 0.63 MG/3 ML VIAL.NEB 1 Vial INH/RAÚL TID PRN WHEEZING (Reported) Levalbuterol Tartrate (Xopenex Hfa) 45 MCG/ACTUATION HFA.AER.AD 2 PUF INH AD PRN ASTHMA/COPD (Reported) Olmesartan Medoxomil (Benicar) 40 MG TABLET 1 TAB PO DAILY BP (Reported) Tiotropium [place] (Spiriva Respimat) 1.25 MCG/ACTUATION MIST.INHAL 1 PUFF INH DAILY ASTHMA/COPD (Reported) Verapamil HCl 360 MG CAP24H.PEL 1 CAP PO DAILY HEART/BP (Reported) Review of Systems Review of Systems: A review of systems is unremarkable. Past History Travel History Traveled to [place] past 21 day No Medical History Blood Transfusion Hx: No Neurological: NONE EENT: NONE Cardiovascular: hypertension Respiratory: asthma, COPD, LUNG CA Gastrointestinal: NONE Hepatic: NONE Renal: NONE Musculoskeletal: NONE Psychiatric: NONE Endocrine: NONE Blood Disorders: NONE Cancer(s): LUNG CA GRAIN MANAGER/Reproductive: NONE Surgical History Surgical History: 1 lobectomy ((2016)) Psychosocial History Services at Home: None Smoking Status: Former Smoker ETOH Use: denies use Illicit Drug Use: denies illicit drug use Exam & Diagnostic Data Vital Signs and I&O Vital Signs Date Time Temp Pulse Resp B/P B/P Pulse O2 O2 Flow FiO2 Mean Ox Delivery Rate 06/12 1031 Nasal 2.0L Cannula 06/12 0956 100 138/50 06/12 0900 99 Nasal 2.0L Cannula 06/12 0800 99 Nasal 1.0L Cannula 06/12 0646 97.8 91 20 122/40 95 Room Air 06/12 0048 96 Nasal 2.0L Cannula 06/11 2320 117 06/11 2320 118 06/11 2155 97.6 114 19 156/78 96 Nasal 2.0L Cannula 06/11 2155 96 Nasal 2.0L Cannula 06/11 2100 97.2 114 19 155/75 97 Nasal Cannula 06/11 2034 113 96 Nasal 2.0L Cannula 06/11 1734 129 162/77 06/11 1734 98 Nasal 2.0L Cannula 06/11 1612 115 06/11 1519 98.4 125 19 155/97 94 Room Air Intake & Output 06/12 1600 06/12 0800 06/12 0000 06/11 1600 06/11 0800 06/11 0000 Intake Total 330 150 Output Total 200 Balance 330 -50 Intake, IV 130 Intake, Oral 200 150 Output, Urine 200 Patient 155 lb 155 lb Weight Weight Reported by Patient Reported by Patient Measurement Method Physical Exam: General: WD/overweight female in NAD; alert and oriented x 3 HEENT: NC/AT, PERRL, EOMI Neck: no JVD, no carotid bruit Heart: RRR w/o murmur Lungs: clear bilaterally Abdomen: soft, NT, +ve bowel sounds Extremities: no edema Assessment/Plan Assessment/Plan * This patient has shortness of breath but no convincing evidence to support left or right heart failure. In the setting of COPD and a lobectomy I would expect elevated RV pressures that could cause eventual RV failure but, at present, there is no JVD or leg swelling that would be indicative of this problem. It is recommended that this patient have an echocardiogram to assess quantitatively her RV size and pressure. I suspect that her current shortness of breath is due to a mild exacerbation of her COPD. * It is noted that this patient was tachycardic upon admission and she does report intermittent palpitations. This may be a result of both her physiologic stress while not breathing easily and her beta agonist. Her heart rate has come down as her shortness of breath is resolving. I do not think this represents any significant dysrhythmia. She should continue on her Verapamil which I assume was prescribed to treat her hypertension. Consult Acknowledgment - Thank you for your consult request.
[2017-06-12 14:32] VITALS: BP 143/65
--- NOTE | 2017-06-12 15:16 | PN- Student ---
Subjective Subjective: ID: The patient is a 77 year old white female with a history of lung cancer s/p resection, COPD, asthma, and hypertension. CC: shortness of breath and cough Source: patient and chart HPI: Patient states that she was feeling well up until this morning when she started to feel very short of breath and weak. She also began having a cough that had clear sputum. She went to the urgent care clinic who gave her a nebulizer treatment and then told her to come to the ED. She also reports a sore throat. She was treated 2 weeks ago for bronchitis with a Z-Iain and a 5 day course of prednisone. She states she took the medications completely. She has not traveled recently or had any sick contacts. She received her flu vaccine this year. She has not felt feverish or chills. She denies any chest pain, orthopnea, skin rashes, nausea/vomiting, or any urinary symptoms. She is having a fast heart beat which she says she always has, although it is currently worse, and takes verapamil for. She does not see a aircraft tool maker. PMH: She has past medical history of lung cancer s/p resection in 2016, COPD, asthma, hypertension, and tachycardia. Medications: See objective Allergies: See objective ROS: Constitutional- negative Eyes- negative ENT- see HPI Pulmonary- see HPI Cardiac- see HPI GI- negative - negative Musculoskeletal- negative Skin- negative Neuro- negative Psychiatric- negative Endocrine- negative Family History: Positive for cardiac disease, hypertension, diabetes, and dementia. Social History: She is a former smoker. She smoked for many years but quit several years ago. She denies alcohol and illicit drug use. She is a retired school psychologist and lives with her . She says she is careful about her diet and avoids high-salt foods. Objective Objective: Vital Signs Date Time Temp Pulse Resp B/P B/P Pulse O2 O2 Flow FiO2 Mean Ox Delivery Rate 06/12 1432 97.1 98 20 143/65 95 Room Air 06/12 1031 Nasal 2.0L Cannula 06/12 0956 100 138/50 06/12 0900 99 Nasal 2.0L Cannula 06/12 0800 99 Nasal 1.0L Cannula 06/12 0646 97.8 91 20 122/40 95 Room Air 06/12 0048 96 Nasal 2.0L Cannula 06/11 2320 117 06/11 2320 118 06/11 2154 97.6 114 19 156/78 96 Nasal 2.0L Cannula 06/11 2154 96 Nasal 2.0L Cannula 06/11 2099 97.2 114 19 155/75 97 Nasal Cannula 06/11 2033 113 96 Nasal 2.0L Cannula 06/11 1734 129 162/77 06/11 173 98 Nasal 2.0L Cannula 06/11 1612 115 06/11 1519 98.4 125 19 155/97 94 Room Air Intake & Output 06/12 1600 06/12 0800 06/12 0000 Intake Total 700 330 150 Output Total 300 200 Balance 400 330 -50 Intake, IV 250 130 Intake, Oral 450 200 150 Output, Urine 300 200 Patient 155 lb Weight Weight Reported by Patient Measurement Method Current Medications Sig/Tao Start time Last Medication Dose Route Stop Time Status Admin Acetaminophen 650 MG Q6P PRN 06/11 213 AC PO Albuterol Sulfate 3 ML EVERY 4 HRS/AWAKE 06/12 1200 AC 06/12 INH 1213 Albuterol Sulfate 3 ML ONCE ONE 06/12 0015 DC 06/12 INH 06/12 0016 0018 Ampicillin Sodium/ 1,500 MG Q6 06/12 0600 AC 06/12 Sulbactam Sodium IV 0615 Sodium Chloride 100 ML Ampicillin Sodium/ 1,500 MG Q6H 06/11 2037 DC 06/12 Sulbactam Sodium IV 0053 Sodium Chloride 100 ML Azithromycin 500 MG DAILY 06/12 1000 AC 06/12 Dextrose/Water 250 ML IV 0957 Azithromycin 500 MG ONCE ONE 06/11 1700 DC 06/11 Dextrose/Water 250 ML IV 06/11 1759 1715 Benzocaine/Menthol 1 TAMAR Q2P PRN 06/11 1915 AC 06/11 PO 2232 Budesonide/ 2 PUF BID 06/11 2200 AC 06/12 Formoterol Fumarate INH 0958 Ceftriaxone Sodium 0 .STK-MED ONE 06/11 1707 DC .ROUTE Ceftriaxone Sodium 1,000 MG ONCE ONE 06/11 1700 DC 06/11 IV 06/11 1701 1708 Diphenhydramine HCl 50 MG ONCE ONE 06/11 1730 DC 06/11 IV 06/11 1731 1726 Diphenhydramine HCl 0 .STK-MED ONE 06/11 1728 DC .ROUTE Enoxaparin Sodium 40 MG DAILY@2100 02/21 2122 AC SC Guaifenesin 600 MG Q12 PRN 06/12 1345 AC PO Ipratropium [place] 2.5 ML ONCE ONE 06/12 0015 DC 06/12 INH 06/12 0016 0018 Loratadine 10 MG DAILY 06/12 1000 AC PO Losartan Potassium 50 MG DAILY 06/12 1000 DC PO Losartan Potassium 50 MG DAILY 06/11 2315 AC 06/11 PO 2320 Methylprednisolone 40 MG Q12 06/12 1000 AC 06/12 IV 0954 Methylprednisolone 125 MG ONCE ONE 06/11 1730 DC 06/11 IV 06/11 1731 1729 Methylprednisolone 0 .STK-MED ONE 06/11 1728 DC .ROUTE Morphine Sulfate 2 MG Q4P PRN 06/11 2130 AC IV Patient Medication 1 ED ONE ONE 06/12 1200 DC Teaching ED 06/12 1201 Sodium Chloride 1,000 ML BOLUS ONE 06/11 1700 DC 06/11 IV 06/11 1759 1729 Sodium Chloride 1,000 ML ONCE ONE 06/11 1600 DC 06/11 IV 06/11 2239 1610 Tiotropium [place] 1 PUF DAILY 06/12 1000 AC 06/12 INH 0958 Verapamil HCl 360 MG DAILY 06/12 1000 DC PO Verapamil HCl 360 MG DAILY 06/11 2315 AC 06/12 PO 0956 Physical Examination: General: alert and oriented x3, appears mildly diaphoretic Eyes: PERRLA, non-icteric sclera ENT: erythematous pharynx Neck: supple, no thyromegaly, no lymphadenopathy Lungs: decreased breath sounds in bases, no wheezing, rhonchi, or crackles Cardiac: tachycardia, normal S1 and S2, normal rhythm, no murmurs rubs or gallops, no JVD appreciated Abdomen: soft, non-tender, non-distended, normal bowel sounds, no hepatosplenomegaly Extremities: no pedal edema, no digital clubbing or cyanosis Results Results: Laboratory Tests 06/12/17 0520: Troponin I 0.07, TSH 0.291, Free T4 1.26, Cortisol AM Sample 4.4 L 06/12/17 0520: Anion Gap 8, Estimated GFR > 60, BUN/Creatinine Ratio 20.0, CBC w Diff NO MAN DIFF REQ, RBC 3.65 L, MCV 96.0, MCH 32.8 H, MCHC 34.2, RDW 12.8, MPV 7.3 L, Gran % 88.8 H, Lymphocytes % 9.4 L, Monocytes % 1.7, Eosinophils % 0, Basophils % 0.1, Absolute Granulocytes 3.5, Absolute Lymphocytes 0.4 L, Absolute Monocytes 0.1, Absolute Eosinophils 0, Absolute Basophils 0 06/11/172349: Urine Color STRAW, Urine Clarity CLEAR, Urine pH 6.0, Ur Specific [place] 1.010, Urine Protein NEG, Urine Ketones NEG, Urine Nitrite NEG, Urine Bilirubin NEG, Urine Urobilinogen 0.2, Ur Leukocyte Esterase NEG, Ur Microscopic SEDIMENT EXAMINED, Urine RBC 1-3, Urine WBC RARE, Urine Hemoglobin TRACE-INTACT, Urine Glucose NEG 06/11/172349: Urine Osmolality 264 L, Ur Random Creatinine 21.0, Ur Random Sodium 35, Ur Random Potassium 30.5, Fraction Sodium Excret 0.9 06/11/17 2317: Troponin I 0.03 06/11/17 1827: Lactic Acid Cancelled 06/11/17 1545: Anion Gap 12, Estimated GFR > 60, BUN/Creatinine Ratio 22.9, Glucose 143 H, Serum Osmolality 275 L, Lactic Acid 1.0, Calcium 9.4, Total Bilirubin 0.3, AST 23, ALT 30, Alkaline Phosphatase 105, Troponin I < 0.01, Total Protein 6.9, Albumin 4.3, Globulin 2.6, Albumin/Globulin Ratio 1.7, D-Dimer High Sensitivty 201, CBC w Diff NO MAN DIFF REQ, RBC 4.17 L, MCV 96.6, MCH 32.3 H, MCHC 33.5, RDW 13.1, MPV 7.6, Gran % 93.7 H, Lymphocytes % 4.3 L, Monocytes % 1.7, Eosinophils % 0.1, Basophils % 0.2, Absolute Granulocytes 6.9 H, Absolute Lymphocytes 0.3 L, Absolute Monocytes 0.1, Absolute Eosinophils 0, Absolute Basophils 0 Microbiology 06/11 2329 LOWER RESP: Respiratory Culture - COLB 06/11 2329 LOWER RESP: Gram Stain - COLB 06/11 2232 URINE ROUT: Urine Culture - RECD 06/11 1651 BLOOD: Blood Culture - CAN Cancelled: Cancelled via OE: Error 06/11 1651 BLOOD: Blood Culture - CAN Cancelled: Cancelled via OE: Error 06/11 1558 NASOPHARYN: Influenza Virus A & B Rapid Smear - COMP 06/11 1545 BLOOD: Blood Culture - RES 06/11 1530 BLOOD: Blood Culture - RES Assessment/Plan Assessment: This is a 77 year old white female former smoker with a past medical history of lung cancer s/p resection, COPD, asthma, hypertension, and tachycardia presenting for acute onset of shortness of breath and cough. Her physical exam was notable for afebrile, decreased breath sounds on the left, an erythematous pharynx, and tachycardia. Her initial chest x-ray showed airspace opacity at right base and atelectasis at left base. Her labs were notable for sodium of 128 , normal WBCs, decreased plasma osmolality of 275, and normal troponin. This is possibly pneumonia. Plan: Shortness of breath: -IV Unasyn, was given ceftriaxone and azithromycin in ED which caused an adverse reaction of chills, flushing, and pruritis -Lozenges for sore throat -CTA of chest to rule out PE -Blood, sputum, and urine cultures -Nebulizer therapy PRN Tachycardia: - Admit to telemetry -Cardiology consult -Serial troponins and EKGs -Echocardiogram -Continue verapamil Hyponatremia: -Follow up electrolytes -Check thyroid studies -Get urine osmolality History of hypertension: -Continue home medications
[2017-06-12 22:26] VITALS: BP 116/50
[2017-06-13 07:01] VITALS: BP 116/58
--- NOTE | 2017-06-13 07:15 | PN- Housestaff ---
Subjective Follow-up For: COPD exacerbation Pneumonia Sinus tachycardia Hyponatremia Tele-Events Since Last Visit: Sinus tachycardia with first-degree AV block Heart rate 90-104. Subjective: Patient states he wants to go home today but continues to have some shortness of breath and is also wheezing this am. States he felt better after taking Mucinex last night and was able to bring up phlegm. Denies any fever/chills, chest pain , palpitations or lightheadedness/dizziness. Review of Systems Constitutional: Reports: no symptoms. EENTM: Reports: no symptoms. Cardiovascular: Reports: no symptoms. Respiratory: Reports: cough, short of breath, wheezing. Gastrointestinal: Reports: no symptoms. Genitourinary: Reports: no symptoms. Musculoskeletal: Reports: no symptoms. Skin: Reports: no symptoms. Neurological/Psychological: Reports: no symptoms. Hematologic/Endocrine: Reports: no symptoms. Immunologic/Allergic: Reports: no symptoms. Objective Last 24 Hrs of Vital Signs/I&O Vital Signs Date Time Temp Pulse Resp B/P B/P Pulse O2 O2 Flow FiO2 Mean Ox Delivery Rate 06/13 1428 Room Air 06/13 1428 97.7 95 18 120/52 97 06/13 0856 110 116/58 06/13 0856 110 116/58 06/13 0821 96 Room Air 06/13 0800 Room Air 06/13 0701 97.6 103 18 116/58 94 Room Air 06/13 0531 95 Room Air 06/13 0000 Room Air 06/12 2226 97.5 87 18 116/50 94 Room Air 06/12 1740 100 138/50 06/12 1739 110 143/53 06/12 1640 94 Room Air Intake & Output 06/13 1600 06/13 0800 06/13 0000 Intake Total 1275 370 630 Output Total Balance 1275 370 630 Intake, IV 375 130 150 Intake, Oral 900 240 480 Number 0 0 Bowel Movements Physical Exam General Appearance: Alert, Oriented X3, Cooperative Skin: No Rashes, No Breakdown Cardiovascular: Regular Rate, Normal S1, Normal S2 Lungs: decreased breath sounds, bilateral wheezing Abdomen: Normal Bowel Sounds, Soft, No Tenderness Extremities: No Clubbing, No Cyanosis, No Edema Current Medications: Current Medications Sig/Tao Start time Last Medication Dose Route Stop Time Status Admin Acetaminophen 650 MG Q6P PRN 06/110 AC PO Albuterol Sulfate 3 ML EVERY 4 HRS/AWAKE 06/12 1200 AC 06/13 INH 1230 Ampicillin Sodium/ 1,500 MG Q6H 06/12 2130 AC 06/13 Sulbactam Sodium IV 1411 Sodium Chloride 100 ML Azithromycin 500 MG DAILY 06/12 1000 AC 06/13 Dextrose/Water 250 ML IV 0857 Benzocaine/Menthol 1 TAMAR Q2P PRN 06/11 1915 AC 06/11 PO 2232 Budesonide/ 2 PUF BID 06/11 2200 AC 06/13 Formoterol Fumarate INH 0857 Enoxaparin Sodium 40 MG DAILY@2100 06/11 212 AC SC Guaifenesin 600 MG Q12 PRN 06/12 1345 AC 06/13 PO 1449 Loratadine 10 MG DAILY 06/12 1000 AC 06/13 PO 0856 Losartan Potassium 50 MG DAILY 06/11 2315 AC 06/13 PO 0856 Methylprednisolone 40 MG Q12 06/12 1000 AC 06/13 IV 0856 Morphine Sulfate 2 MG Q4P PRN 06/11 2130 AC IV Patient Medication 1 ED ONE ONE 06/13 1430 [place] Teaching ED 06/13 1431 Patient Medication 1 ED ONE ONE 06/13 1430 KS Teaching ED 06/13 1431 Tiotropium [place] 1 PUF DAILY 06/12 1000 AC 06/13 INH 0857 Verapamil HCl 360 MG DAILY 06/11 2315 AC 06/13 PO 0856 Last 24 Hrs of Lab/Angel Results Last 24 Hrs of Labs/Mics: Laboratory Tests 06/13/17 0716: Anion Gap 12, Estimated GFR > 60, BUN/Creatinine Ratio 22.9 Assessment/Plan Assessment: Mrs. Jeffrey is a 77-year-old lady with past medical history significant for COPD, asthma, hypertension and lung cancer status post resection(2015) presents with shortness of breath and cough which started this morning. A/P; 1. COPD exacerbation secondary to pneumonia; - Continue IV Unasyn, day 3. (Allergic reaction to ceftriaxone). We'll change to Augmentin tomorrow. - Continue IV Solu-Medrol 40 mg every 12. Switched to prednisone tomorrow. - continue Spiriva and symbicort. - Chloraseptic lozanges for sore throat. - Mucinex as needed for cough and congestion -Records were obtained from the business quality assurance analyst, CAT scan from August 2016 confirmed stable 6 mm pulmonary nodule in the left upper lobe. 2. Sinus Tachycardia; - Continue verapamil - Appreciate cardiology recommendations. 3. Hyponatremia; likely SIADH. sodium level slightly improved from 128 to 132 this morning. - Borderline low serum cortisol level of 4.4. Cosyntropin stimulation test cannot be done as the patient is on IV Solu-Medrol. Can be done as an outpatient. - Repeat BEP tomorrow a.m. - Continue 1200 ml fluid restriction. 4. Hypertension; - Continue Cozar. DVT Prophylaxis; S/C Lovenox Patient is DNR/DNI Problem List: 1. Tachycardia 2. Pneumonia 3. Hyponatremia Pain Ratin Pain Location: None Pain Goal: Remain pain free Pain Plan: None Tomorrow's Labs & Rationales: BEP(hyponatremia)
--- NOTE | 2017-06-13 08:05 | ECHOCARDIOGRAM REPORT ---
REBECCA CROSS Age: 77 : 1940 Gender: F Exam Date: 06/12/2017 09:11 Exam Location: [place] Ht (in): 66 Wt (lb): 155 BSA: 1.82 BP: 122 / 40 Ordering Physician: Aicha Faustin MD Referring Physician: Aicha Faustin MD Technologist: Sriram Guan [facility] Room Number: 179-2 Indications: SVT Rhythm: Sinus Technical Quality: technically limited study FINDINGS Left Ventricle Normal left ventricular size, wall thickness and systolic function with no obvious regional wall motion abnormalities. Diastolic filling pattern is consistent with impaired LV relaxation. The ejection fraction is visually estimated at 80%. Right Ventricle The right ventricle is normal in size and function. Right Atrium The right atrium is normal in size. Left Atrium The left atrium is normal in size. The interatrial septum is intact. Mitral Valve The mitral valve demonstrates mild posterior annular calcification. There is no mitral regurgitation. Aortic Valve Structurally normal aortic valve without significant sclerosis or stenosis. There is no aortic regurgitation. Tricuspid Valve The tricuspid valve is normal in structure and function. There is trace tricuspid regurgitation. Pulmonary artery systolic pressure is mildly elevated to 43mmHg. Pulmonic Valve Structurally normal pulmonic valve. There is no pulmonic regurgitation. Pericardium Normal pericardium without effusion. No pleural effusion. Great Vessels Normal aortic root dimension. The aortic arch and great vessels are well seen and are normal. CONCLUSIONS 1. Hyperdynamic EF of 80% with impaired LV relaxation. 2. Trace tricuspid regurgitation. 3. Mild pulmonary hypertension. Carlos Ruiz M.D. (Electronically Signed) Final Date: 13 June 2017 08:04 MEASUREMENTS (Male / Female) Normal Values 2D ECHO LV Diastolic Diameter PLAX 4.0 cm 4.2 - 5.9 / 3.9 - 5.3 cm LV Systolic Diameter PLAX 1.8 cm 2.1 - 4.0 cm LV Fractional Shortening PLAX 55.0 % 25 - 46 % LV Ejection Fraction 2D Teich 86.1 % IVS Diastolic Thickness 0.9 cm LVPW Diastolic Thickness 0.8 cm LV Relative Wall Thickness 0.4 RV Internal Dim ED PLAX 2.6 cm 1.9 - 3.8 cm LVOT Diameter 1.8 cm Aortic Root Diameter 2.8 cm LA Systolic Diameter LX 2.9 cm 3.0 - 4.0 / 2.7 - 3.8 cm DOPPLER AV Peak Velocity 168.0 cm/s AV Peak Gradient 11.3 mmHg AV Mean Velocity 115.0 cm/s AV Mean Gradient 6.0 mmHg AV Velocity Time Integral 33.0 cm LVOT Peak Velocity 134.0 cm/s LVOT Peak Gradient 7.2 mmHg LVOT Mean Velocity 81.8 cm/s LVOT Mean Gradient 3.0 mmHg LVOT Velocity Time Integral 33.9 cm LVOT Stroke Volume 86.3 cm AV Area Cont Eq vti 2.6 cm AV Area Cont Eq pk 2.0 cm MV Peak Velocity 218.0 cm/s MV Peak Gradient 19.0 mmHg MV Mean Velocity 133.0 cm/s MV Mean Gradient 9.0 mmHg Mitral E Point Velocity 148.0 cm/s Mitral A Point Velocity 190.0 cm/s Mitral E to A Ratio 0.8 MV PHT Velocity 197.0 cm/s MV Deceleration [place] 1928.0 cm/s MV Pressure Half Time 30.7 ms MV Area PHT 7.2 cm MV Deceleration Time 187.0 ms TR Peak Velocity 308.0 cm/s TR Peak Gradient 37.9 mmHg Right Atrial Pressure 10.0 mmHg Pulmonary Artery Systolic Pressu 47.9 mmHg Right Ventricular Systolic Press 47.9 mmHg PV Peak Velocity 112.0 cm/s PV Peak Gradient 5.0 mmHg PV Mean Velocity 89.1 cm/s PV Mean Gradient 3.0 mmHg PV Velocity Time Integral 22.2 cm LV E' Lateral Velocity 15.0 cm/s Mitral E to LV E' Lateral Ratio 9.9 LV E' Septal Velocity 9.9 cm/s Mitral E to LV E' Septal Ratio 14.9
--- NOTE | 2017-06-13 11:20 | PN- Att Addend ---
See Addendum Attending Addendum Attending Brief Note Attending MD Statement: examined this patient, discuss w/resident/PA/CLIN ASST, agreed w/resident/PA/CLIN ASST, reviewed EMR data (avail) Attending Assessment/Plan: Patient seen and examined. Plan of care discussed with the medical team and the patient. Available lab work and radiology test reports were reviewed. Patient has been afebrile. She has been intermittently tachycardic but no respiratory distress was reported. Saturation on room air is 95%. Chest exam shows scattered crepitation especially in the lower zones. No wheezing is heard. Abdomen soft nontender. No peripheral edema is noted. Cortisol is 4.4. Laboratory Tests 06/13/17 0716: Anion Gap 12, Estimated GFR > 60, BUN/Creatinine Ratio 22.9 06/12/17 0520: Troponin I 0.07, TSH 0.291, Free T4 1.26, Cortisol AM Sample 4.4 L 06/12/17 0520: Anion Gap 8, Estimated GFR > 60, BUN/Creatinine Ratio 20.0, CBC w Diff NO MAN DIFF REQ, RBC 3.65 L, MCV 96.0, MCH 32.8 H, MCHC 34.2, RDW 12.8, MPV 7.3 L, Gran % 88.8 H, Lymphocytes % 9.4 L, Monocytes % 1.7, Eosinophils % 0, Basophils % 0.1, Absolute Granulocytes 3.5, Absolute Lymphocytes 0.4 L, Absolute Monocytes 0.1, Absolute Eosinophils 0, Absolute Basophils 0 06/11/17 2350: Urine Color STRAW, Urine Clarity CLEAR, Urine pH 6.0, Ur Specific [place] 1.010, Urine Protein NEG, Urine Ketones NEG, Urine Nitrite NEG, Urine Bilirubin NEG, Urine Urobilinogen 0.2, Ur Leukocyte Esterase NEG, Ur Microscopic SEDIMENT EXAMINED, Urine RBC 1-3, Urine WBC RARE, Urine Hemoglobin TRACE-INTACT, Urine Glucose NEG 06/11/17 2350: Urine Osmolality 264 L, Ur Random Creatinine 21.0, Ur Random Sodium 35, Ur Random Potassium 30.5, Fraction Sodium Excret 0.9 06/11/17 2317: Troponin I 0.03 06/11/17 1827: Lactic Acid Cancelled 06/11/17 1545: Anion Gap 12, Estimated GFR > 60, BUN/Creatinine Ratio 22.9, Glucose 143 H, Serum Osmolality 275 L, Lactic Acid 1.0, Calcium 9.4, Total Bilirubin 0.3, AST 23, ALT 30, Alkaline Phosphatase 105, Troponin I < 0.01, Total Protein 6.9, Albumin 4.3, Globulin 2.6, Albumin/Globulin Ratio 1.7, D-Dimer High Sensitivty 201, CBC w Diff NO MAN DIFF REQ, RBC 4.17 L, MCV 96.6, MCH 32.3 H, MCHC 33.5, RDW 13.1, MPV 7.6, Gran % 93.7 H, Lymphocytes % 4.3 L, Monocytes % 1.7, Eosinophils % 0.1, Basophils % 0.2, Absolute Granulocytes 6.9 H, Absolute Lymphocytes 0.3 L, Absolute Monocytes 0.1, Absolute Eosinophils 0, Absolute Basophils 0 Microbiology 06/11 2329 LOWER RESP: Respiratory Culture - CAN Cancelled: SPECIMEN NOT RECEIVED IN LABORATORY 06/11 2329 LOWER RESP: Gram Stain - CAN Cancelled: SPECIMEN NOT RECEIVED IN LABORATORY 06/11 2232 URINE ROUT: Urine Culture - RES 06/11 1651 BLOOD: Blood Culture - CAN Cancelled: Cancelled via OE: Error 06/11 165 BLOOD: Blood Culture - CAN Cancelled: Cancelled via OE: Error 06/11 1558 NASOPHARYN: Influenza Virus A & B Rapid Smear - COMP 06/11 1545 BLOOD: Blood Culture - RES 06/11 1530 BLOOD: Blood Culture - RES Vital Signs Date Time Temp Pulse Resp B/P B/P Pulse O2 O2 Flow FiO2 Mean Ox Delivery Rate 06/13 0856 110 116/58 06/13 0856 110 116/58 06/13 0821 96 Room Air 06/13 0800 Room Air 06/13 0701 97.6 103 18 116/58 94 Room Air 06/13 0531 95 Room Air 06/13 0000 Room Air 06/12 2226 97.5 87 18 116/50 94 Room Air 06/12 1740 100 138/50 06/12 1739 110 143/53 06/12 1640 94 Room Air 06/12 1432 97.1 98 20 143/65 95 Room Air Intake & Output 06/13 1600 06/13 0800 06/13 0000 Intake Total 370 630 Output Total Balance 370 630 Intake, IV 130 150 Intake, Oral 240 480 Number 0 0 Bowel Movements Endocardium report 1. Hyperdynamic EF of 80% with impaired LV relaxation. 2. Trace tricuspid regurgitation. 3. Mild pulmonary hypertension. Assessment and plan Pneumonia- continue current antibiotics; no need to repeat CBC this point Lung nodule scarring and groundglass opacities noted on CT scan- patient history of a right lung nodule resection. She follows up with her thoracic surgeon and slagger elsewhere. She is in process of switching her slagger. she wishes to follow-up with her doctors in [facility]. Persistent sinus tachycardia- TSH and free T4 were normal. Likely sinus tachycardia is from pneumonia and underlying lung disease; continue to monitor on telemetry Hyponatremia- most likely from SIADH; sodium has improved with the restrictions; continue fluid restriction 1200 mL per day and recheck sodium tomorrow Please obtain report of loss CAT scan patient had. I did inform patient about CT findings and she is aware that she will need to follow closely with the slagger and CT surgery. We'll plan to switch antibiotics to Augmentin tomorrow morning; if patient clinical stable she can be discharged tomorrow.
--- NOTE | 2017-06-13 13:55 | PN- Student ---
Subjective Subjective: Patient seen and examined this morning. She still has a feeling of tightness in her chest that Mucinex helped with yesterday. She thinks she is wheezing. She denies any other symptoms. Overnight telemetry monitoring- sinus tachycardia and normal sinus rhythm Objective Objective: Vital Signs Date Time Temp Pulse Resp B/P B/P Pulse O2 O2 Flow FiO2 Mean Ox Delivery Rate 06/13 0856 110 116/58 06/13 0856 110 116/58 06/13 0821 96 Room Air 06/13 0800 Room Air 06/13 0701 97.6 103 18 116/58 94 Room Air 06/13 0531 95 Room Air 06/13 0000 Room Air 06/12 2226 97.5 87 18 116/50 94 Room Air 06/12 1740 100 138/50 06/12 1739 110 143/53 06/12 1640 94 Room Air 06/12 1432 97.1 98 20 143/65 95 Room Air Intake & Output 06/13 1600 06/13 0800 06/13 0000 Intake Total 370 630 Output Total Balance 370 630 Intake, IV 130 150 Intake, Oral 240 480 Number 0 0 Bowel Movements Physical Examination: General: alert and oriented x3 Neck: supple, no thyromegaly, no lymphadenopathy Lungs: decreased breath sounds in bases, bilateral wheezing, no rhonchi or crackles Cardiac: tachycardia, normal S1 and S2, normal rhythm, no murmurs rubs or gallops, no JVD appreciated Abdomen: soft, non-tender, non-distended, normal bowel sounds, no hepatosplenomegaly Extremities: no pedal edema, no digital clubbing or cyanosis Results Results: Laboratory Tests 06/13/17 0716: Anion Gap 12, Estimated GFR > 60, BUN/Creatinine Ratio 22.9 06/12/17 0520: Troponin I 0.07, TSH 0.291, Free T4 1.26, Cortisol AM Sample 4.4 L 06/12/17 0520: Anion Gap 8, Estimated GFR > 60, BUN/Creatinine Ratio 20.0, CBC w Diff NO MAN DIFF REQ, RBC 3.65 L, MCV 96.0, MCH 32.8 H, MCHC 34.2, RDW 12.8, MPV 7.3 L, Gran % 88.8 H, Lymphocytes % 9.4 L, Monocytes % 1.7, Eosinophils % 0, Basophils % 0.1, Absolute Granulocytes 3.5, Absolute Lymphocytes 0.4 L, Absolute Monocytes 0.1, Absolute Eosinophils 0, Absolute Basophils 0 06/11/172349: Urine Color STRAW, Urine Clarity CLEAR, Urine pH 6.0, Ur Specific [place] 1.010, Urine Protein NEG, Urine Ketones NEG, Urine Nitrite NEG, Urine Bilirubin NEG, Urine Urobilinogen 0.2, Ur Leukocyte Esterase NEG, Ur Microscopic SEDIMENT EXAMINED, Urine RBC 1-3, Urine WBC RARE, Urine Hemoglobin TRACE-INTACT, Urine Glucose NEG 06/11/17 235: Urine Osmolality 264 L, Ur Random Creatinine 21.0, Ur Random Sodium 35, Ur Random Potassium 30.5, Fraction Sodium Excret 0.9 06/11/17 2317: Troponin I 0.03 06/11/17 182: Lactic Acid Cancelled 06/11/17 1545: Anion Gap 12, Estimated GFR > 60, BUN/Creatinine Ratio 22.9, Glucose 143 H, Serum Osmolality 275 L, Lactic Acid 1.0, Calcium 9.4, Total Bilirubin 0.3, AST 23, ALT 30, Alkaline Phosphatase 105, Troponin I < 0.01, Total Protein 6.9, Albumin 4.3, Globulin 2.6, Albumin/Globulin Ratio 1.7, D-Dimer High Sensitivty 201, CBC w Diff NO MAN DIFF REQ, RBC 4.17 L, MCV 96.6, MCH 32.3 H, MCHC 33.5, RDW 13.1, MPV 7.6, Gran % 93.7 H, Lymphocytes % 4.3 L, Monocytes % 1.7, Eosinophils % 0.1, Basophils % 0.2, Absolute Granulocytes 6.9 H, Absolute Lymphocytes 0.3 L, Absolute Monocytes 0.1, Absolute Eosinophils 0, Absolute Basophils 0 Microbiology 06/11 2329 LOWER RESP: Respiratory Culture - CAN Cancelled: SPECIMEN NOT RECEIVED IN LABORATORY 06/11 2329 LOWER RESP: Gram Stain - CAN Cancelled: SPECIMEN NOT RECEIVED IN LABORATORY 06/11 2232 URINE ROUT: Urine Culture - RES 06/11 1651 BLOOD: Blood Culture - CAN Cancelled: Cancelled via OE: Error 06/11 165 BLOOD: Blood Culture - CAN Cancelled: Cancelled via OE: Error 06/11 1558 NASOPHARYN: Influenza Virus A & B Rapid Smear - COMP 06/11 1545 BLOOD: Blood Culture - RES 06/11 1530 BLOOD: Blood Culture - RES Current Medications Sig/Tao Start time Last Medication Dose Route Stop Time Status Admin Acetaminophen 650 MG Q6P PRN 06/11 2130 AC PO Albuterol Sulfate 3 ML EVERY 4 HRS/AWAKE 06/12 1200 AC 06/13 INH 1230 Ampicillin Sodium/ 1,500 MG Q6H 06/12 2130 AC 06/13 Sulbactam Sodium IV 0856 Sodium Chloride 100 ML Ampicillin Sodium/ 1,500 MG Q6 06/12 0600 DC 06/12 Sulbactam Sodium IV 1524 Sodium Chloride 100 ML Azithromycin 500 MG DAILY 06/12 1000 AC 06/13 Dextrose/Water 250 ML IV 0857 Benzocaine/Menthol 1 TAMAR Q2P PRN 06/11 1915 AC 06/11 PO 2232 Budesonide/ 2 PUF BID 06/11 2200 AC 06/13 Formoterol Fumarate INH 0857 Enoxaparin Sodium 40 MG DAILY@2100 06/11 212 AC SC Guaifenesin 600 MG Q12 PRN 06/12 1345 AC 06/12 PO 1529 Loratadine 10 MG DAILY 06/12 1000 AC 06/13 PO 0856 Losartan Potassium 50 MG DAILY 06/11 2315 AC 06/13 PO 0856 Methylprednisolone 40 MG Q12 06/12 1000 AC 06/13 IV 0856 Morphine Sulfate 2 MG Q4P PRN 06/11 213 AC IV Tiotropium [place] 1 PUF DAILY 06/12 1000 AC 06/13 INH 0857 Verapamil HCl 360 MG DAILY 06/11 2315 AC 06/13 PO 0856 Assessment/Plan Assessment: This is a 77 year old white female former smoker with a past medical history of lung cancer s/p resection, COPD, asthma, hypertension, and tachycardia presenting for acute onset of shortness of breath and cough. Her physical exam was notable for afebrile, decreased breath sounds on the left, an erythematous pharynx, and tachycardia. Her initial chest x-ray showed airspace opacity at right base and atelectasis at left base. Her labs were notable for sodium of 128 , normal WBCs, decreased plasma osmolality of 275, and normal troponin. This is possibly pneumonia. Plan: Shortness of breath: -IV Unasyn, was given ceftriaxone and azithromycin in ED which caused an adverse reaction of chills, flushing, and pruritis -Lozenges for sore throat -CTA of chest does not show evidence of PE, shows evidence of emphysema and 6 mm nodule -Prior CT of chest in 2017 shows nodule, appears to be stable -Blood, sputum, and urine cultures have shown no growth -Nebulizer therapy PRN Tachycardia: -Admit to telemetry -Follow cardiology recommendations -Serial troponins and EKGs have not changed -Echocardiogram shows impaired LV relaxation and mild pulmonary hypertension, hyperdynamic EF of 80% -Continue verapamil Hyponatremia: -Most likely due to SIADH -Na has risen to 132 on 1200 mL fluid restriction -Continue fluid restriction -AM cortisol was borderline low at 4.4, will get cosynotropin test -Follow up electrolytes -Thyroid studies were normal
[2017-06-13 14:28] VITALS: BP 120/52
[2017-06-13] MEDS ORDERED: AUGMENTIN 875-1 EACH PO (15:15)
[2017-06-13] MEDS ORDERED: PREDNISONE10 M2 PO (15:20)
--- NOTE | 2017-06-13 15:31 | Patient Discharge Instructions ---
Discharge Instructions General Discharge Information You were seen/treated for: COPD exacerbation Tachycardia Hyponatremia Special Instructions: Please follow-up with your PCP within a week after discharge. Please follow-up with the television receiver analyzer within a week after discharge. Please follow-up with your cfd engineer within a week after discharge. A 6 mm pulmonary nodule was noticed on your CAT scan, which needs to be monitored. Diet Continue normal diet: Yes Activity Full Activity/No Limits: Yes Acute Coronary Syndrome Inclusion Criteria At DC or during hospital stay patient has or had the following: ACS DIAGNOSIS No Discharge Core Measures Meds if any: Prescribed or Continued at Discharge Meds if any: NOT Prescribed or Continued at Discharge Congestive Heart Failure Inclusion Criteria At DC or during hospital stay patient has or had the following: CHF DIAGNOSIS No Discharge Core Measures Meds if any: Prescribed or Continued at Discharge Meds if any: NOT Prescribed or Continued at Discharge Cerebrovascular accident Inclusion Criteria At DC or during hospital stay patient has or had the following: CVA/TIA Diagnosis No Discharge Core Measures Meds if any: Prescribed or Continued at Discharge Meds if any: NOT Prescribed or Continued at Discharge Venous thromboembolism Inclusion Criteria VTE Diagnosis No VTE Type NONE VTE Confirmed by (Test) CT CHEST ANGIOGRAM Discharge Core Measures - Per Current guidelines, there needs to be overlap - treatment for the first 5 days of Warfarin therapy. - If discharged on Warfarin prior to 5 days of - overlap therapy, the patient will need to be - assessed for post discharge needs including - *Post discharge parental anticoagulation - *Warfarin and/or parental anticoagulation education - *Follow up date to check INR post discharge At least 5 days overlap therapy as Inpatient No Meds if any: Prescribed or Continued at Discharge Note: Overlap Therapy is Warfarin and Anticoagulant Meds if any: NOT Prescribed or Continued at Discharge
--- NOTE | 2017-06-13 18:35 | PN- Cardiology ---
Subjective Subjective: * Patient is breathing a bit better but is not back to baseline and continues to wheeze. * sinus tachycardia * hyperdynamic EF on echo Objective Vital Signs and I&Os Vital Signs Date Time Temp Pulse Resp B/P B/P Pulse O2 O2 Flow FiO2 Mean Ox Delivery Rate 06/13 1615 95 Room Air 06/13 1428 Room Air 06/13 1428 97.7 95 18 120/52 97 06/13 0856 110 116/58 06/13 0856 110 116/58 06/13 0821 96 Room Air 06/13 0800 Room Air 06/13 0701 97.6 103 18 116/58 94 Room Air 06/13 0531 95 Room Air 06/13 0000 Room Air 06/12 2226 97.5 87 18 116/50 94 Room Air Intake & Output 06/13 1600 06/13 0800 06/13 0000 06/12 1600 06/12 0800 06/12 0000 Intake Total 1275 370 630 700 330 150 Output Total 300 200 Balance 1275 370 630 400 330 -50 Intake, IV 375 130 150 250 130 Intake, Oral 900 240 480 450 200 150 Number 0 0 Bowel Movements Output, Urine 300 200 Patient 155 lb Weight Weight Reported by Patient Measurement Method Physical Exam: General: WD/overweight female in NAD; alert and oriented x 3 Neck: no JVD, no carotid bruit Heart: RRR w/o murmur Lungs: expiratory wheezing noted bilaterally Extremities: no edema Assessment/Plan Assessment/Plan * This patient has shortness of breath but no convincing evidence to support left or right heart failure. Her EF is hyperdynamic. The patient has mildly elevated RV pressures which is expected in the setting of COPD and a lobectomy. There is no JVD or leg swelling. I suspect that her current shortness of breath is due to a mild exacerbation of her COPD. * It is noted that this patient was tachycardic upon admission and she does report intermittent palpitations. This may be a result of both her physiologic stress while not breathing easily and her beta agonist. Her heart rate has come down as her shortness of breath is resolving. I do not think this represents any significant dysrhythmia. She should continue on her Verapamil which I assume was prescribed to treat her hypertension. Continue telemetry? Yes
[2017-06-13 22:01] VITALS: BP 130/70
[2017-06-14 06:54] VITALS: BP 162/80
--- NOTE | 2017-06-14 08:15 | PN- Housestaff ---
Bladimir VELA,[facility] 06/14/17 0815: Subjective Follow-up For: COPD exacerbation likely 2/2 pneumonia Sinus tachycardia Hyponatremia Tele-Events Since Last Visit: Sinus tachycardia Heart rate 102 to 118 Subjective: Patient's she states she was very short of breath when she woke up this morning and does not think she is ready to go home today. Also complaining of pain in her back because of a muscle spasm. Review of Systems Constitutional: Reports: no symptoms. EENTM: Reports: no symptoms. Cardiovascular: Reports: no symptoms. Respiratory: Reports: cough, short of breath. Gastrointestinal: Reports: no symptoms. Genitourinary: Reports: no symptoms. Musculoskeletal: Reports: back pain, muscle pain. Skin: Reports: no symptoms. Neurological/Psychological: Reports: no symptoms. Hematologic/Endocrine: Reports: no symptoms. Immunologic/Allergic: Reports: no symptoms. Objective Last 24 Hrs of Vital Signs/I&O Vital Signs Date Time Temp Pulse Resp B/P B/P Pulse O2 O2 Flow FiO2 Mean Ox Delivery Rate 06/14 1710 96 Nasal 1.0L Cannula 06/14 1420 97.2 104 22 142/60 97 Nasal 1.0L Cannula 06/14 1200 94 Room Air 06/14 0942 98.0 110 18 140/82 06/14 0942 98.0 110 18 140/82 06/14 0800 94 Nasal 1.0L Cannula 06/14 0654 97.8 108 20 162/80 93 Room Air 06/14 0301 Room Air 06/14 0036 95 Room Air 06/13 2201 97.9 111 20 130/70 94 06/13 2004 95 Room Air Intake & Output 06/14 1600 06/14 0800 06/14 0000 Intake Total 850 240 610 Output Total Balance 850 240 610 Intake, IV 250 130 Intake, Oral 600 240 480 Number 0 Bowel Movements Physical Exam General Appearance: Alert, Oriented X3, Cooperative, No Acute Distress Skin: No Rashes, No Breakdown Cardiovascular: Regular Rate, Normal S1, Normal S2 Lungs: wheezing bilaterally Abdomen: Normal Bowel Sounds, Soft, No Tenderness Extremities: No Clubbing, No Cyanosis, No Edema Current Medications: Current Medications Sig/Tao Start time Last Medication Dose Route Stop Time Status Admin Acetaminophen 650 MG Q6P PRN 06/11 2130 AC PO Albuterol Sulfate 3 ML EVERY 4 HRS/AWAKE 06/12 1200 AC 06/14 INH 1159 Amoxicillin/ 875 MG Q12 06/14 1000 AC 06/14 Clavulanate Potassium PO 0943 Ampicillin Sodium/ 1,500 MG Q6H 06/12 2130 DC 06/13 Sulbactam Sodium IV 2103 Sodium Chloride 100 ML Azithromycin 500 MG DAILY 06/12 1000 AC 06/14 Dextrose/Water 250 ML IV 0941 Benzocaine/Menthol 1 TAMAR Q2P PRN 06/11 1915 AC 06/11 PO 2232 Budesonide/ 2 PUF BID 06/11 2200 AC 06/14 Formoterol Fumarate INH 0943 Enoxaparin Sodium 40 MG DAILY@2100 06/11 212 AC SC Guaifenesin 600 MG Q12 PRN 06/12 1345 AC 06/14 PO 1725 Loratadine 10 MG DAILY 06/12 1000 AC 06/14 PO 0942 Losartan Potassium 50 MG DAILY 06/11 2315 AC 06/14 PO 0942 Melatonin 5 MG ONCE ONE 06/14 0100 DC 06/14 PO 06/14 0101 0105 Methylprednisolone 40 MG Q12 06/12 1000 DC 06/13 IV 2103 Morphine Sulfate 2 MG Q4P PRN 06/11 2130 AC IV Prednisone 40 MG DAILY 06/14 1000 AC 06/14 PO 0942 Tiotropium [place] 1 PUF DAILY 06/12 1000 AC 06/14 INH 0943 Verapamil HCl 360 MG DAILY 06/11 2315 AC 06/14 PO 0942 Last 24 Hrs of Lab/Angel Results Last 24 Hrs of Labs/Mics: Laboratory Tests 06/14/17 0710: Anion Gap 8, Estimated GFR > 60, BUN/Creatinine Ratio 24.3 Assessment/Plan Assessment: Mrs. Jeffrey is a 77-year-old lady with past medical history significant for COPD, asthma, hypertension and lung cancer status post resection(2015) presents with shortness of breath and cough which started this morning. A/P; 1. COPD exacerbation likely secondary to pneumonia 2. Sinus Tachycardia 3. Hyponatremia 4. Hypertension - Unasyn changed to Augmentin(Day 4). - Solu-Medrol switched to prednisone 40 mg daily, will taper gradually over a week. - O2 sats of 94% on 1 L of O2. - continue Spiriva and symbicort. - Chloraseptic lozanges for sore throat. - Mucinex as needed for cough and congestion - Hyponatremia resolving. Continue fluid restriction to 1200 ml. - Repeat BEP tomorrow a.m. - Continue Cozar and verapamil for hypertension and tachycardia respectively. DVT Prophylaxis; S/C Lovenox Patient is DNR/DNI Problem List: 1. Tachycardia 2. Pneumonia 3. Hyponatremia Pain Ratin Pain Location: None Pain Goal: Remain pain free Pain Plan: None Tomorrow's Labs & Rationales: BEP(hyponatremia) Go VELA,Amir 06/14/17 1155: Attending MD Review Statement Attending Statement Attending MD Statement: examined this patient, discuss w/resident/PA/MANAGER EQUITY, agreed w/resident/PA/MANAGER EQUITY, reviewed EMR data (avail) Attending Assessment/Plan: Pt was seen and evaluated by me. Chart review. Currently reports some back spasm. Otherwise doing better. BP elevaterd. Na levels improving on water restriction. On Prednisone. switch to PO abx and f/u cards recs. Likely d/c in next 24 hrs
[2017-06-14 14:20] VITALS: BP 142/60
[2017-06-14 22:07] VITALS: BP 142/60
[2017-06-15 06:51] VITALS: BP 132/78
--- NOTE | 2017-06-15 09:21 | PN- Housestaff ---
See Addendum Angeles VELA,Alicia 06/15/17 0920: Subjective Follow-up For: COPD exacerbation likely 2/2 pneumonia Sinus tachycardia Hyponatremia Tele-Events Since Last Visit: Normal sinus rhythm to sinus tach with heart rate of 88-100 Subjective: Patient was seen and examined today. Patient states that she is feeling worse today. States that she feels congested and has increased shortness of breath while walking. Patient is currently on 1 L of oxygen. Patient does not use oxygen at home. Patient received respiratory treatment this morning which she says has helped and patient is on his next. Patient reports of chronic dry nonproductive cough. Patient denies any chest pain, palpitations, dizziness, lightheadedness, fever, chills, nausea/vomiting, dysuria/hematuria, constipation /diarrhea. Review of Systems Constitutional: Reports: see HPI. Objective Last 24 Hrs of Vital Signs/I&O Vital Signs Date Time Temp Pulse Resp B/P B/P Pulse O2 O2 Flow FiO2 Mean Ox Delivery Rate 06/15 1429 98.1 106 22 130/50 95 Nasal Cannula 06/15 1200 94 Nasal 1.0L Cannula 06/15 0958 98.4 118 20 142/72 06/15 0957 98.4 118 20 142/72 06/15 0846 96 Nasal 1.0L Cannula 06/15 0651 98.3 93 18 132/78 96 Nasal Cannula 06/15 0317 Nasal 1.0L Cannula 06/14 2207 97.7 110 16 142/60 99 Nasal Cannula Intake & Output 06/15 1600 06/15 0800 06/15 0000 Intake Total 600 50 640 Output Total Balance 600 50 640 Intake, Oral 600 50 640 Physical Exam General Appearance: Alert, Cooperative, No Acute Distress Skin Temp/Moisture Exam: Warm/Dry HEENT: Atraumatic, Mucous Membr. moist/pink Cardiovascular: Regular Rate, Normal S1, Normal S2 Lungs: diffuse bilateral mild wheezing Abdomen: Normal Bowel Sounds, Soft, No Tenderness Extremities: No Clubbing, No Cyanosis, No Edema, Normal Pulses, No Tenderness/ Swelling Current Medications: Current Medications Sig/Tao Start time Last Medication Dose Route Stop Time Status Admin Acetaminophen 650 MG Q6P PRN 06/11 2130 AC PO Albuterol Sulfate 3 ML EVERY 4 HRS/AWAKE 06/12 1200 AC 06/15 INH 1207 Amoxicillin/ 875 MG Q12 06/14 1000 AC 06/15 Clavulanate Potassium PO 0958 Azithromycin 500 MG DAILY 06/12 1000 DC 06/14 Dextrose/Water 250 ML IV 0941 Benzocaine/Menthol 1 TAMAR Q2P PRN 06/11 1915 AC 06/11 PO 2232 Budesonide/ 2 PUF BID 06/110 AC 06/15 Formoterol Fumarate INH 0953 Enoxaparin Sodium 40 MG DAILY@2100 06/11 2121 AC SC Guaifenesin 600 MG Q12 PRN 06/12 1345 AC 06/15 PO 0647 Loratadine 10 MG DAILY 06/12 1000 AC 06/15 PO 0955 Losartan Potassium 50 MG DAILY 06/11 231 AC 06/15 PO 0958 Melatonin 5 MG AT BEDTIME 06/14 2114 AC 06/14 PO 2230 Morphine Sulfate 2 MG Q4P PRN 06/11 2129 AC IV Prednisone 40 MG DAILY 06/14 1000 AC 06/15 PO 0954 Tiotropium [place] 1 PUF DAILY 06/12 1000 AC 06/15 INH 0954 Verapamil HCl 360 MG DAILY 06/11 231 AC 06/15 PO 0957 Last 24 Hrs of Lab/Angel Results Last 24 Hrs of Labs/Mics: Laboratory Tests 06/15/17 0630: Anion Gap 7, Estimated GFR > 60, BUN/Creatinine Ratio 30.0 H Assessment/Plan Assessment: Mrs. Jeffrey is a 77-year-old lady with past medical history significant for COPD, asthma, hypertension and lung cancer status post resection(2015) presents with shortness of breath and cough which started this morning. A/P; 1. COPD exacerbation likely secondary to pneumonia 2. Sinus Tachycardia 3. Hyponatremia 4. Hypertension - Unasyn changed to Augmentin(Day 5). - Solu-Medrol switched to prednisone 40 mg daily, will taper gradually over a week. - O2 sats of 94% on 1 L of O2. - continue Spiriva and symbicort. - Chloraseptic lozanges for sore throat. - Mucinex as needed for cough and congestion - Hyponatremia resolving. Continue fluid restriction to 1200 ml. - Repeat BEP tomorrow a.m. - Continue Cozar and verapamil for hypertension and tachycardia respectively. - Consider pulmonology consult tomorrow AM for ongoing dyspnea and congestion. Patient would like to transition her care. DVT Prophylaxis; S/C Lovenox Patient is DNR/DNI Problem List: 1. Pneumonia 2. Tachycardia 3. Hyponatremia Pain Ratin Pain Location: n/a Pain Goal: Remain pain free Pain Plan: n/a Tomorrow's Labs & Rationales: BEP- hyponatremia Go VELA,Amir 06/15/17 1142: Attending MD Review Statement Attending Statement Attending MD Statement: examined this patient, discuss w/resident/PA/FUELER, agreed w/resident/PA/FUELER, reviewed EMR data (avail), discussed with nursing Attending Assessment/Plan: Pt doesn't feel completely better today, reports still having SOB and wants to see Pulm for further evaluation. She was started on PO abx. Will obtain Pulm consult. Rest of the plan as per resident's note
--- NOTE | 2017-06-15 12:11 | Cons- Pulmonary ---
General Information and HPI Consulting Request Date of Consult: 06/15/17 Requested By: Medical team Reason for Consult: COPD exacerbation Source of Information: patient Exam Limitations: no limitations History of Present Illness: 77-year-old woman with a history of COPD treated by Dr. Nichols. She uses Symbicort and Spiriva and nebulizer treatments for her COPD. She has been slow to recover after possible sick contact at her [facility] community. She had an echocardiogram showing an EFhyperdynamic with mild pulmonary hypertension. On June 11 she had a CTA performed without evidence of pulmonary embolism how showing emphysema with a left upper lobe pleural-based nodule 1.4 cm groundglass in nature. Overall she feels better but she has been slow to recover with continued shortness of breath wheezing in the nonproductive cough. She has no nausea no vomiting no diarrhea no constipation no chest pain at this time. Allergies/Medications Allergies: Coded Allergies: ceftriaxone (From ROCEPHIN) (Severe, SWELLING ALL OVER, DARK RED ALL OVER, DYSPNEA 06/11/17) cefuroxime (From CEFTIN) (Severe, BODY SWELLING AND DARK RED ALL OVER, DYSPNEA 06/11/17) ciprofloxacin (From CIPRO) (Severe, SWELLING ALL OVER, DARK RED ALL OVER, DYSPNEA 06/11/17) gemifloxacin (From FACTIVE) (Intermediate, HIVES 06/11/17) aspirin (Mild, BLOODY NOSE 06/11/17) Home Med List: Amoxicillin/Potassium Clav (Augmentin 875-125 Tablet) 875 MG-125 MG TABLET 1 TAB PO BID PNEUMONIA Budesonide/Formoterol Fumarate (Symbicort 160-4.5 Mcg Inhaler) 160 MCG-4.5 MCG/ ACTUATION HFA.AER.AD 2 PUF INH BID ASTHMA/COPD (Reported) Cetirizine HCl (All Day Allergy) 10 MG TABLET 1 TAB PO DAILY PRN ALLERGIES ( Reported) Levalbuterol HCl (Xopenex) 0.63 MG/3 ML VIAL.NEB 1 Vial INH/RAÚL TID PRN WHEEZING (Reported) Levalbuterol Tartrate (Xopenex Hfa) 45 MCG/ACTUATION HFA.AER.AD 2 PUF INH AD PRN ASTHMA/COPD (Reported) Olmesartan Medoxomil (Benicar) 40 MG TABLET 1 TAB PO DAILY BP (Reported) Prednisone 10 MG TABLET 1 TAB PO BID COPD On Take 06/14-06/16 40 MG 06/17-06/19 30 MG 06/20-06/22 20 MG 06/23-06/25 10 MG Then Stop Tiotropium [place] (Spiriva Respimat) 1.25 MCG/ACTUATION MIST.INHAL 1 PUFF INH DAILY ASTHMA/COPD (Reported) Verapamil HCl 360 MG CAP24H.PEL 1 CAP PO DAILY HEART/BP (Reported) Current Medications: Current Medications Sig/Tao Start time Last Medication Dose Route Stop Time Status Admin Acetaminophen 650 MG Q6P PRN 06/11 2130 AC PO Albuterol Sulfate 3 ML EVERY 4 HRS/AWAKE 06/12 1200 AC 06/15 INH 1207 Amoxicillin/ 875 MG Q12 06/14 1000 AC 06/15 Clavulanate Potassium PO 0958 Azithromycin 500 MG DAILY 06/12 1000 DC 06/14 Dextrose/Water 250 ML IV 0941 Benzocaine/Menthol 1 TAMAR Q2P PRN 06/11 1915 AC 06/11 PO 2232 Budesonide/ 2 PUF BID 06/11 2200 AC 06/15 Formoterol Fumarate INH 0953 Enoxaparin Sodium 40 MG DAILY@2100 06/11 2122 AC SC Guaifenesin 600 MG Q12 PRN 06/12 1345 AC 06/15 PO 0647 Loratadine 10 MG DAILY 06/12 1000 AC 06/15 PO 0955 Losartan Potassium 50 MG DAILY 06/11 2315 AC 06/15 PO 0958 Melatonin 5 MG AT BEDTIME 06/14 2115 AC 06/14 PO 2230 Morphine Sulfate 2 MG Q4P PRN 06/11 2130 AC IV Prednisone 40 MG DAILY 06/14 1000 AC 06/15 PO 0954 Tiotropium [place] 1 PUF DAILY 06/12 1000 AC 06/15 INH 0954 Verapamil HCl 360 MG DAILY 06/11 2315 AC 06/15 PO 0957 Review of Systems Comments 18 point review of systems was performed and reviewed. Please see pertinent positives and pertinent negatives in the HPI. Otherwise ROS is negative. Past History Travel History Traveled to [place] past 21 day No Medical History Blood Transfusion Hx: No Neurological: NONE EENT: NONE Cardiovascular: hypertension Respiratory: asthma, COPD, LUNG CA Gastrointestinal: NONE Hepatic: NONE Renal: NONE Musculoskeletal: NONE Psychiatric: NONE Endocrine: NONE Blood Disorders: NONE Cancer(s): LUNG CA CHIEF OF STAFF/Reproductive: NONE Surgical History Surgical History: 1 lobectomy ((2016)) Family History Relations & Conditions If Any: Relation not specified for: *No pertinent family history Psychosocial History Services at Home: None Smoking Status: Former Smoker ETOH Use: denies use Illicit Drug Use: denies illicit drug use Exam & Diagnostic Data Last 24 Hrs of Vital Signs/I&O Vital Signs Date Time Temp Pulse Resp B/P B/P Pulse O2 O2 Flow FiO2 Mean Ox Delivery Rate 06/15 0958 98.4 118 20 142/72 06/15 0957 98.4 118 20 142/72 06/15 0846 96 Nasal 1.0L Cannula 06/15 0651 98.3 93 18 132/78 96 Nasal Cannula 06/15 0317 Nasal 1.0L Cannula 06/14 2207 97.7 110 16 142/60 99 Nasal Cannula 06/14 1710 96 Nasal 1.0L Cannula 06/14 1420 97.2 104 22 142/60 97 Nasal 1.0L Cannula Intake & Output 06/15 1600 06/15 0800 06/15 0000 Intake Total 50 640 Output Total Balance 50 640 Intake, Oral 50 640 Physical Exam Other Physical Findings: Generally - Awake, alert Head and neck - normocephalic, atraumatic, EOMI grossly intact Cardiovascular - S1, S2, no murmurs, rubs or gallops Lungs -bilateral rhonchi Abdomen - Bowel sounds positive, soft, non-tender Extremities - without edema Last 48 Hrs of Labs/Angel: Laboratory Tests 06/15/17 0630: Anion Gap 7, Estimated GFR > 60, BUN/Creatinine Ratio 30.0 H 06/14/17 0710: Anion Gap 8, Estimated GFR > 60, BUN/Creatinine Ratio 24.3 Assessment/Plan Impression/Plan: Impression 77-year-old woman * Acute exacerbation of COPD likely secondary to tracheobronchitis * History of lung cancer with lung nodules Plan -TRC/nebs -Change prednisone to 60 mg daily for 3 days, 50 mg daily for 3 days, 40 mg daily for 3 days, 30 mg daily for 3 days, 20 mg daily for 3 days, 20 mg daily for 3 days, 10 mg daily for 3 days, then stop. -Antibiotics per primary team no obvious need at this time -Continue Mucinex -Continue Spiriva and Symbicort -Please obtain records from her primary nurseryperson Dr. Nichols -Discharge planning within 24-48 hours -Assess oxygen needs ambulatory -We'll require previous CAT scan imaging from her oncologist at [facility], based on this she will require follow-up for her pulmonary nodules DVT prophylaxis at all times Consult Acknowledgment - Thank you for your consult request.
[2017-06-15 14:29] VITALS: BP 130/50
[2017-06-15 21:51] VITALS: BP 124/72
[2017-06-16 06:43] VITALS: BP 170/60
--- NOTE | 2017-06-16 07:11 | PN- Housestaff ---
Bladimir VELA,[facility] 06/16/17 0711: Subjective Follow-up For: COPD exacerbation Community-acquired pneumonia Sinus tachycardia Hyponatremia Tele-Events Since Last Visit: Sinus tachycardia Heart rate 85-123 No Overnight events noted. Subjective: Patient states she woke up this morning gasping for air and instead of getting better her breathing has been getting worse since admission to the hospital. Also Mucinex is helping with the cough and congestion but still she has been able to bring up much phlegm. Review of Systems Constitutional: Reports: no symptoms. EENTM: Reports: no symptoms. Cardiovascular: Reports: no symptoms. Respiratory: Reports: no symptoms. Gastrointestinal: Reports: no symptoms. Genitourinary: Reports: no symptoms. Musculoskeletal: Reports: no symptoms. Skin: Reports: no symptoms. Neurological/Psychological: Reports: no symptoms. Hematologic/Endocrine: Reports: no symptoms. Immunologic/Allergic: Reports: no symptoms. Objective Last 24 Hrs of Vital Signs/I&O Vital Signs Date Time Temp Pulse Resp B/P B/P Pulse O2 O2 Flow FiO2 Mean Ox Delivery Rate 06/16 1336 98.1 108 22 150/60 93 Nasal 2.0L Cannula 06/16 0916 120 160/88 06/16 0916 120 160/88 06/16 0830 95 Nasal 2.0L Cannula 06/16 0800 98 Nasal 1.0L Cannula 06/16 0643 97.3 102 28 170/60 93 Nasal 2.0L Cannula 06/16 0356 Nasal 1.0L Cannula 06/15 2151 98.4 91 22 124/72 93 Nasal 1.0L Cannula 06/15 2127 93 Nasal 1.0L Cannula 06/15 1857 97 Nasal 1.0L Cannula 06/15 1600 95 Nasal 1.0L Cannula Intake & Output 06/16 1600 06/16 0800 06/16 0000 Intake Total 480 Output Total 900 300 Balance -900 180 Intake, Oral 480 Output, Urine 900 300 Physical Exam General Appearance: Alert, Oriented X3, Cooperative, No Acute Distress Skin: No Rashes, No Breakdown Cardiovascular: Regular Rate, Normal S1, Normal S2 Lungs: decreased breath sounds bilaterally Abdomen: Normal Bowel Sounds, Soft, No Tenderness Extremities: No Clubbing, No Cyanosis, No Edema, Normal Pulses Current Medications: Current Medications Sig/Tao Start time Last Medication Dose Route Stop Time Status Admin Acetaminophen 650 MG Q6P PRN 02/21 2130 AC PO Albuterol Sulfate 3 ML EVERY 4 HRS/AWAKE 06/12 1200 AC 06/16 INH 1155 Amoxicillin/ 875 MG Q12 06/14 1000 AC 06/16 Clavulanate Potassium PO 0916 Benzocaine/Menthol 1 TAMAR Q2P PRN 06/11 1915 AC 06/11 PO 2232 Budesonide/ 2 PUF BID 06/11 2200 AC 06/16 Formoterol Fumarate INH 0916 Enoxaparin Sodium 40 MG DAILY@2100 06/11 212 AC SC Guaifenesin 600 MG Q12 PRN 06/12 1345 AC 06/16 PO 0655 Loratadine 10 MG DAILY 06/12 1000 AC 06/16 PO 0916 Losartan Potassium 50 MG DAILY 06/11 2315 AC 06/16 PO 0916 Melatonin 5 MG AT BEDTIME 06/14 211 AC 06/15 PO 2112 Morphine Sulfate 2 MG Q4P PRN 06/16 0915 AC IV Morphine Sulfate 2 MG Q4P PRN 06/11 2130 DC IV Prednisone 60 MG DAILY 06/16 1000 AC 06/16 PO 0915 Prednisone 20 MG ONCE ONE 06/15 1800 DC 06/15 PO 06/15 1801 1823 Prednisone 40 MG DAILY 06/14 1000 DC 06/15 PO 0954 Tiotropium [place] 1 PUF DAILY 06/12 1000 AC 06/16 INH 0916 Verapamil HCl 360 MG DAILY 06/11 2315 AC 06/16 PO 0916 Last 24 Hrs of Lab/Angel Results Last 24 Hrs of Labs/Mics: Laboratory Tests 06/16/17 0624: Anion Gap 8, Estimated GFR > 60, BUN/Creatinine Ratio 25.7 H, Troponin I < 0.01 06/16/17 0600: Sodium Cancelled, Potassium Cancelled, Chloride Cancelled, Carbon Dioxide Cancelled, Anion Gap Cancelled, BUN Cancelled, Creatinine Cancelled, BUN/ Creatinine Ratio Cancelled Assessment/Plan Assessment: Mrs. Jeffrye is a 77-year-old lady with past medical history significant for COPD, asthma, hypertension and lung cancer status post resection(2015) presents with shortness of breath and cough which started this morning. A/P; 1. COPD exacerbation likely secondary to pneumonia 2. Sinus Tachycardia 3. Hyponatremia 4. Hypertension - Continue Augmentin(Day 6). - Prednisone 60 mg daily x 3 days, with gradual taper per pulmonology. - O2 sats of 94% on 2 L of O2. We will try to wean off. - continue Spiriva and symbicort. - Chloraseptic lozanges for sore throat. - Mucinex as needed for cough and congestion - Hyponatremia resolving. Continue fluid restriction to 1200 ml. - Continue Cozar and verapamil for hypertension and tachycardia respectively. DVT Prophylaxis; S/C Lovenox Patient is DNR/DNI Problem List: 1. Pneumonia 2. Tachycardia 3. Hyponatremia Pain Ratin Pain Location: None Pain Goal: Remain pain free Pain Plan: None Tomorrow's Labs & Rationales: None Annemarie VELA,[place] 06/16/17 1147: Attending MD Review Statement Attending Statement Attending MD Statement: examined this patient, discuss w/resident/PA/LACQUER MACHINE FEEDER, agreed w/resident/PA/LACQUER MACHINE FEEDER, reviewed EMR data (avail), discussed with nursing, discussed with case mgmt, amended to note Attending Assessment/Plan: Patient seen and examined. Sitting up in bed. Complaining of difficulty breathing. She appears short of breath when talking. She talks in short sentences. She however is very jovial all through our conversation. She denies chest pain. Denies palpitations. She had no events on telemetry monitoring. Her sinus tachycardia has improved compared to presentation. On examination she has adequate entry bilaterally with no added sounds. She has no peripheral edema. Etiology of her shortness of breath is unclear at present. Imaging on presentation showed no overwhelming evidence of pneumonia. She was treated empirically and has completed about 6 days of therapy so far. She remains afebrile with no leukocytosis since admission. She is very hesitant about being discharged due to complaints of shortness of breath. I did discuss with chili pepper grinder Dr. Samayoa. Recommendations: -Wean off oxygen supplementation as tolerated. Check pulse oximetry on room air at rest and with ambulation. -Continue bronchodilator therapy. Continue oral prednisone taper. -Discontinue IV morphine and provide pain control with oral medications. -Complete 7 days of antibiotic therapy for presumed pneumonia. -Anticipate discharge tomorrow. -Discontinue telemetry monitoring.
--- NOTE | 2017-06-16 12:02 | PN- Pulmonary ---
Subjective HPI/Critical Care Issues: Patient seen and examined this morning. She appears to be still dyspneic with conversation. Overall she is obviously improved but she has not returned to baseline as of yet. Objective Current Medications: Current Medications Sig/Tao Start time Last Medication Dose Route Stop Time Status Admin Acetaminophen 650 MG Q6P PRN 06/11 2130 AC PO Albuterol Sulfate 3 ML EVERY 4 HRS/AWAKE 06/12 1200 AC 06/16 INH 1155 Amoxicillin/ 875 MG Q12 06/14 1000 AC 06/16 Clavulanate Potassium PO 0916 Benzocaine/Menthol 1 TAMAR Q2P PRN 06/11 1915 AC 06/11 PO 2232 Budesonide/ 2 PUF BID 06/11 220 AC 06/16 Formoterol Fumarate INH 0916 Enoxaparin Sodium 40 MG DAILY@2100 06/11 2121 AC SC Guaifenesin 600 MG Q12 PRN 06/12 1345 AC 06/16 PO 0655 Loratadine 10 MG DAILY 06/12 1000 AC 06/16 PO 0916 Losartan Potassium 50 MG DAILY 06/11 2315 AC 06/16 PO 0916 Melatonin 5 MG AT BEDTIME 06/14 2115 AC 06/15 PO 2112 Morphine Sulfate 2 MG Q4P PRN 06/16 0915 AC IV Morphine Sulfate 2 MG Q4P PRN 06/11 213 DC IV Prednisone 60 MG DAILY 06/16 1000 AC 06/16 PO 0915 Prednisone 20 MG ONCE ONE 06/15 1800 DC 06/15 PO 06/15 1801 1823 Prednisone 40 MG DAILY 06/14 1000 DC 06/15 PO 0954 Tiotropium [place] 1 PUF DAILY 06/12 1000 AC 06/16 INH 0916 Verapamil HCl 360 MG DAILY 06/11 2315 AC 06/16 PO 0916 Vital Signs & I&O Last 24 Hrs of Vitals and I&O: Vital Signs Date Time Temp Pulse Resp B/P B/P Pulse O2 O2 Flow FiO2 Mean Ox Delivery Rate 06/16 0916 120 160/88 06/16 0916 120 160/88 06/16 0830 95 Nasal 2.0L Cannula 06/16 0800 98 Nasal 1.0L Cannula 06/16 0643 97.3 102 28 170/60 93 Nasal 2.0L Cannula 06/16 0356 Nasal 1.0L Cannula 06/15 2150 98.4 91 22 124/72 93 Nasal 1.0L Cannula 06/157 93 Nasal 1.0L Cannula 06/15 1857 97 Nasal 1.0L Cannula 06/15 1600 95 Nasal 1.0L Cannula 06/15 1429 98.1 106 22 130/50 95 Nasal Cannula Intake & Output 06/16 1600 06/16 0800 06/16 0000 Intake Total 480 Output Total 900 300 Balance -900 180 Intake, Oral 480 Output, Urine 900 300 Exam Other Physical Findings: Generally - Awake, alert Head and neck - normocephalic, atraumatic, EOMI grossly intact Cardiovascular - S1, S2, no murmurs, rubs or gallops Lungs -bilateral rhonchi Abdomen - Bowel sounds positive, soft, non-tender Extremities - without edema Results Last 24 Hrs of Lab Results: Laboratory Tests 06/16/17 0624: Anion Gap 8, Estimated GFR > 60, BUN/Creatinine Ratio 25.7 H, Troponin I < 0.01 06/16/17 0600: Sodium Cancelled, Potassium Cancelled, Chloride Cancelled, Carbon Dioxide Cancelled, Anion Gap Cancelled, BUN Cancelled, Creatinine Cancelled, BUN/ Creatinine Ratio Cancelled Impression/Plan Impression/Plan Impression/Plan: Impression 77-year-old woman * Acute exacerbation of COPD likely secondary to tracheobronchitis * History of lung cancer with lung nodules Plan -TRC/nebs -prednisone to 60 mg daily for 3 days, 50 mg daily for 3 days, 40 mg daily for 3 days, 30 mg daily for 3 days, 20 mg daily for 3 days, 20 mg daily for 3 days, 10 mg daily for 3 days, then stop. -Continue Mucinex -Continue Spiriva and Symbicort -Please obtain records from her primary manager of compensation Dr. Nichols -Discharge planning within 24 hrs -Assess oxygen needs ambulatory -We'll require previous CAT scan imaging from her oncologist at [facility], based on this she will require follow-up for her pulmonary nodules DVT prophylaxis at all times
[2017-06-16 13:36] VITALS: BP 150/60
--- NOTE | 2017-06-16 13:40 | PN- Student ---
Subjective Subjective: Patient seen and examined this morning. She states that she woke up early this morning gasping for air. This has never happened to her so badly before. She feels congestion in her face and chest. Feels as if she is getting worse. Denies any other symptoms. Does not feel like she is ready to leave. She is on 2L of oxygen. Overnight telemetry monitoring- sinus tachycardia and normal sinus rhythm Objective Objective: Vital Signs Date Time Temp Pulse Resp B/P B/P Pulse O2 O2 Flow FiO2 Mean Ox Delivery Rate 06/16 1336 98.1 108 22 150/60 93 Nasal 2.0L Cannula 06/16 0916 120 160/88 06/16 0916 120 160/88 06/16 0830 95 Nasal 2.0L Cannula 06/16 0800 98 Nasal 1.0L Cannula 06/16 0643 97.3 102 28 170/60 93 Nasal 2.0L Cannula 06/16 0356 Nasal 1.0L Cannula 06/15 2151 98.4 91 22 124/72 93 Nasal 1.0L Cannula 06/15 2127 93 Nasal 1.0L Cannula 06/15 1857 97 Nasal 1.0L Cannula 06/15 1600 95 Nasal 1.0L Cannula 06/15 1429 98.1 106 22 130/50 95 Nasal Cannula Intake & Output 06/16 1600 06/16 0800 06/16 0000 Intake Total 480 Output Total 900 300 Balance -900 180 Intake, Oral 480 Output, Urine 900 300 Physical Examination: General: alert and oriented x3 Neck: supple, no thyromegaly, no lymphadenopathy Lungs: sounds dyspneic while speaking, decreased breath sounds in bases, minimal wheezing, no rhonchi or crackles Cardiac: tachycardia, normal S1 and S2, normal rhythm, no murmurs rubs or gallops, no JVD appreciated Abdomen: soft, non-tender, non-distended, normal bowel sounds, no hepatosplenomegaly Extremities: no pedal edema, no digital clubbing or cyanosis Results Results: Laboratory Tests 06/16/17 0624: Anion Gap 8, Estimated GFR > 60, BUN/Creatinine Ratio 25.7 H, Troponin I < 0.01 06/16/17 0600: Sodium Cancelled, Potassium Cancelled, Chloride Cancelled, Carbon Dioxide Cancelled, Anion Gap Cancelled, BUN Cancelled, Creatinine Cancelled, BUN/ Creatinine Ratio Cancelled 06/15/17 0630: Anion Gap 7, Estimated GFR > 60, BUN/Creatinine Ratio 30.0 H 06/14/17 0710: Anion Gap 8, Estimated GFR > 60, BUN/Creatinine Ratio 24.3 Current Medications Sig/Tao Start time Last Medication Dose Route Stop Time Status Admin Acetaminophen 650 MG Q6P PRN 06/11 2130 AC PO Albuterol Sulfate 3 ML EVERY 4 HRS/AWAKE 06/12 1200 AC 06/16 INH 1155 Amoxicillin/ 875 MG Q12 06/14 1000 AC 06/16 Clavulanate Potassium PO 0916 Benzocaine/Menthol 1 TAMAR Q2P PRN 06/11 1915 AC 06/11 PO 2232 Budesonide/ 2 PUF BID 06/11 2199 AC 06/16 Formoterol Fumarate INH 0916 Enoxaparin Sodium 40 MG DAILY@2100 06/11 212 AC SC Guaifenesin 600 MG Q12 PRN 06/12 1345 AC 06/16 PO 0655 Loratadine 10 MG DAILY 06/12 1000 AC 06/16 PO 0916 Losartan Potassium 50 MG DAILY 06/11 2315 AC 06/16 PO 0916 Melatonin 5 MG AT BEDTIME 06/14 2115 AC 06/15 PO 2112 Morphine Sulfate 2 MG Q4P PRN 06/16 0915 AC IV Morphine Sulfate 2 MG Q4P PRN 06/11 2130 DC IV Prednisone 60 MG DAILY 06/16 1000 AC 06/16 PO 0915 Prednisone 20 MG ONCE ONE 06/15 1800 DC 06/15 PO 06/15 1801 1823 Prednisone 40 MG DAILY 06/14 1000 DC 06/15 PO 0954 Tiotropium [place] 1 PUF DAILY 06/12 1000 AC 06/16 INH 0916 Verapamil HCl 360 MG DAILY 06/11 2315 AC 06/16 PO 0916 Assessment/Plan Assessment: This is a 77 year old white female former smoker with a past medical history of lung cancer s/p resection, COPD, asthma, hypertension, and tachycardia presenting for acute onset of shortness of breath and cough. Her physical exam was notable for afebrile, decreased breath sounds on the left, an erythematous pharynx, and tachycardia. Her initial chest x-ray showed airspace opacity at right base and atelectasis at left base. Her labs were notable for sodium of 128 , normal WBCs, decreased plasma osmolality of 275, and normal troponin. This is possibly pneumonia and a COPD exacerbation. Plan: Shortness of breath: -Discontinued IV Unasyn, was given ceftriaxone and azithromycin in ED which caused an adverse reaction of chills, flushing, and pruritis -Given augmentin 875 mg/day, day 6, continue antibiotics for 7 days total -Lozenges for sore throat -Steroid taper -CTA of chest does not show evidence of PE, shows evidence of emphysema and 6 mm nodule -Prior CT of chest in 2017 shows nodule, appears to be stable -Blood, sputum, and urine cultures have shown no growth -Nebulizer therapy PRN -On 2 L of oxygen, try to wean off as tolerated Tachycardia: -Discontinue telemetry monitoring -Follow cardiology recommendations -Serial troponins and EKGs have not changed -Echocardiogram shows impaired LV relaxation and mild pulmonary hypertension, hyperdynamic EF of 80% -Continue verapamil Hyponatremia: -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
[2017-06-16] MEDS ORDERED: PREDNISONE10 M2 PO (16:13)
--- NOTE | 2017-06-16 21:01 | PN- Cardiology ---
Subjective Subjective: * Patient became acutely and severely short of breath with wheezing this morning and it improved with a breathing treatment. No chest pain. Objective Vital Signs and I&Os Vital Signs Date Time Temp Pulse Resp B/P B/P Pulse O2 O2 Flow FiO2 Mean Ox Delivery Rate 06/16 1629 97 Nasal 1.0L Cannula 06/16 1336 98.1 108 22 150/60 93 Nasal 2.0L Cannula 06/16 0916 120 160/88 06/16 0916 120 160/88 06/16 0830 95 Nasal 2.0L Cannula 06/16 0800 98 Nasal 1.0L Cannula 06/16 0643 97.3 102 28 170/60 93 Nasal 2.0L Cannula 06/16 0356 Nasal 1.0L Cannula 06/15 2151 98.4 91 22 124/72 93 Nasal 1.0L Cannula 06/15 2127 93 Nasal 1.0L Cannula Intake & Output 06/16 1600 06/16 0800 06/16 0000 06/15 1600 06/15 0800 06/15 0000 Intake Total 410 480 600 50 640 Output Total 800 900 300 Balance -390 -900 180 600 50 640 Intake, IV 10 Intake, Oral 400 480 600 50 640 Output, Urine 800 900 300 Physical Exam: General: WD/overweight female in NAD; alert and oriented x 3 Neck: no JVD, no carotid bruit Heart: RRR w/o murmur Lungs: expiratory wheezing noted bilaterally Extremities: no edema Assessment/Plan Assessment/Plan * This patient has shortness of breath but no convincing evidence to support left or right heart failure. Her EF is hyperdynamic. The patient has mildly elevated RV pressures which is expected in the setting of COPD and a lobectomy. There is no JVD or leg swelling. I suspect that her current shortness of breath is due to a mild exacerbation of her COPD. * It is noted that this patient was tachycardic upon admission and she does report intermittent palpitations. This may be a result of both her physiologic stress while not breathing easily and her beta agonist. Her heart rate has come down as her shortness of breath is resolving. I do not think this represents any significant dysrhythmia. She should continue on her Verapamil which I assume was prescribed to treat her hypertension. Continue telemetry? Yes
[2017-06-16 22:22] VITALS: BP 122/50
[2017-06-17 06:05] VITALS: BP 162/74
--- NOTE | 2017-06-17 07:19 | PN- Housestaff ---
Bladimir VELA,[facility] 06/17/17 0719: Subjective Follow-up For: COPD exacerbation Community-acquired pneumonia Sinus tachycardia Hyponatremia Tele-Events Since Last Visit: Off telemetry Subjective: Patient states her shortness of breath is getting worse since admission and woke up 3 times last night gasping for air. She has been using Mucinex which helped her but she still feels congested and dyspneic. Review of Systems Constitutional: Reports: no symptoms. EENTM: Reports: no symptoms. Cardiovascular: Reports: orthopena, peripheral edema. Respiratory: Reports: cough, short of breath. Gastrointestinal: Reports: no symptoms. Genitourinary: Reports: no symptoms. Musculoskeletal: Reports: no symptoms. Skin: Reports: no symptoms. Neurological/Psychological: Reports: no symptoms. Hematologic/Endocrine: Reports: no symptoms. Immunologic/Allergic: Reports: no symptoms. Objective Last 24 Hrs of Vital Signs/I&O Vital Signs Date Time Temp Pulse Resp B/P B/P Pulse O2 O2 Flow FiO2 Mean Ox Delivery Rate 06/17 0905 97 Nasal 2.0L Cannula 06/17 0857 78 162/74 06/17 0856 78 162/74 06/17 0800 94 Nasal 2.0L Cannula 06/17 0605 97.6 78 26 162/74 94 Nasal Cannula 06/17 0043 97 Nasal 2.0L Cannula 06/17 0000 96 Nasal 2.0L Cannula 06/16 2222 97.3 64 20 122/50 96 Nasal 2.0L Cannula 06/16 1629 97 Nasal 1.0L Cannula 06/16 1336 98.1 108 22 150/60 93 Nasal 2.0L Cannula Intake & Output 06/17 1600 06/17 0800 06/17 0000 Intake Total 240 100 Output Total 400 Balance 240 100 -400 Intake, Oral 240 100 Output, Urine 400 Patient 155 lb Weight Physical Exam General Appearance: Alert, Oriented X3, Cooperative Skin: No Rashes, No Breakdown Cardiovascular: Regular Rate, Normal S1, Normal S2 Lungs: decreased breath sounds Abdomen: Normal Bowel Sounds, Soft, No Tenderness Extremities: No Clubbing, No Cyanosis, No Edema, Normal Pulses Current Medications: Current Medications Sig/Tao Start time Last Medication Dose Route Stop Time Status Admin Acetaminophen 650 MG Q6P PRN 06/11 2130 AC PO Albuterol Sulfate 3 ML EVERY 4 HRS/AWAKE 02/22 1200 AC 06/17 INH 0905 Amoxicillin/ 875 MG Q12 06/14 1000 AC 06/17 Clavulanate Potassium PO 06/170 0856 Benzocaine/Menthol 1 TAMAR Q2P PRN 06/11 1915 AC 06/11 PO 2232 Budesonide/ 2 PUF BID 06/11 2200 AC 06/17 Formoterol Fumarate INH 0858 Enoxaparin Sodium 40 MG DAILY@2100 06/11 2121 AC SC Guaifenesin 600 MG .STK-MED ONE 06/16 2037 DC PO 06/16 2038 Guaifenesin 600 MG Q12 PRN 06/12 1345 AC 06/16 PO 2058 Loratadine 10 MG DAILY 06/12 1000 AC 06/17 PO 0857 Losartan Potassium 50 MG DAILY 06/11 231 AC 06/17 PO 0857 Melatonin 5 MG AT BEDTIME 06/14 2114 AC 06/16 PO 2058 Morphine Sulfate 2 MG Q4P PRN 06/16 0915 DC IV Prednisone 60 MG DAILY 06/16 1000 AC 06/17 PO 0857 Tiotropium [place] 1 PUF DAILY 06/12 1000 AC 06/17 INH 0858 Tramadol HCl 25 MG Q6P PRN 06/16 1600 AC PO Verapamil HCl 360 MG DAILY 06/11 231 AC 06/17 PO 0856 Assessment/Plan Assessment: Mrs. Jeffrey is a 77-year-old lady with past medical history significant for COPD, asthma, hypertension and lung cancer status post resection(2015) presents with shortness of breath and cough which started this morning. A/P; 1. COPD exacerbation likely secondary to pneumonia 2. Sinus Tachycardia 3. Hyponatremia 4. Hypertension -We will discontinue Augmentin today, patient received a 7 day course of antibiotics for pneumonia. - Cause of her progressive shortness of breath remains unclear. - Prednisone 60 mg today, decrease to 50 mg tomorrow. - Resting O2 sats on room air were 91-95%. Patient's O2 sat dropped down to 90% on ambulation, will continue supplemental O2 for now. - continue Spiriva and symbicort. - Mucinex as needed for cough and congestion. - Continue fluid restriction to 1200 ml for hyponatremia. - Continue Cozar and verapamil for hypertension and tachycardia respectively. DVT Prophylaxis; S/C Lovenox Patient is DNR/DNI Problem List: 1. Pneumonia 2. Tachycardia 3. Hyponatremia Pain Ratin Pain Location: None Pain Goal: Remain pain free Pain Plan: None Tomorrow's Labs & Rationales: None Annemarie VELAMedina 06/17/17 1020: Attending MD Review Statement Attending Statement Attending MD Statement: examined this patient, discuss w/resident/PA/HVAC OPERATIONS TECHNICIAN, agreed w/resident/PA/HVAC OPERATIONS TECHNICIAN, reviewed EMR data (avail), discussed with nursing, discussed with case mgmt, amended to note Attending Assessment/Plan: Patient seen and examined. Sitting in bed and does not appear to be in any obvious distress. Patient however reports that she continues to feel short of breath. She is adamantly reluctant to be discharged home stating she feels unwell. She was treated empirically for pneumonia. She is afebrile and has no leukocytosis. On examination she has adequate entry bilaterally with no added breath sounds. Pulse oximetry on room air at rest today ranged from 91-95%. It is unclear the reason for patient's report of dyspnea. She reports yesterday she was able to ambulate around the unit for about 20 minutes. She reports that she wakes up in the middle of the night with difficulty breathing. She has no previous history of sleep apnea. She currently has no clinical evidence of pneumonia. She will be completing her course of antibiotic therapy for presumed pneumonia today. She shows no evidence of bronchospasm at present and is on systemic steroid therapy. Recommendations: -Continue bronchodilator therapy. Continue systemic steroids taper. -Discontinue abx therapy. -Check pulse oximetry on room air while ambulating. If she does not desaturate below 90%, discontinue oxygen supplementation. -Recommend continuation of clinical care in the outpatient setting. Patient reluctant to be discharged to shelter facility with pulmonary rehabilitation capabilities. We will continue to encourage this for her.
--- NOTE | 2017-06-17 07:37 | Discharge Summary ---
Visit Information Visit Dates Admission Date: 06/11/17 Hospital Course Course Attending Physician: Annemarie VELA,[place] Allergies: Coded Allergies: ceftriaxone (From ROCEPHIN) (Severe, SWELLING ALL OVER, DARK RED ALL OVER, DYSPNEA 06/11/17) cefuroxime (From CEFTIN) (Severe, BODY SWELLING AND DARK RED ALL OVER, DYSPNEA 06/11/17) ciprofloxacin (From CIPRO) (Severe, SWELLING ALL OVER, DARK RED ALL OVER, DYSPNEA 06/11/17) gemifloxacin (From FACTIVE) (Intermediate, HIVES 06/11/17) aspirin (Mild, BLOODY NOSE 06/11/17) Discharge Instructions Medications at Discharge Discharge Medications: Continue taking these medications: Olmesartan Medoxomil (Benicar) 40 MG TABLET 1 Tablet ORAL DAILY Qty = 90 Verapamil HCl (Verapamil HCl) 360 MG CAP24H.PEL 1 Capsule ORAL DAILY Qty = 90 Tiotropium [place] (Spiriva Respimat) 1.25 MCG/ACTUATION MIST.INHAL 1 PUFF Inhale through mouth DAILY Qty = 8 Levalbuterol Tartrate (Xopenex Hfa) 45 MCG/ACTUATION HFA.AER.AD 2 Puff Inhale through mouth As Directed as needed for ASTHMA/COPD Qty = 45 Levalbuterol HCl (Xopenex) 0.63 MG/3 ML VIAL.NEB 1 Vial Inhale Solution THREE TIMES DAILY as needed for WHEEZING Qty = 72 Budesonide/Formoterol Fumarate (Symbicort 160-4.5 Mcg Inhaler) 160 MCG-4.5 MCG/ ACTUATION HFA.AER.AD 2 Puff Inhale through mouth TWICE DAILY Qty = 30 Cetirizine HCl (All Day Allergy) 10 MG TABLET 1 Tablet ORAL DAILY as needed for ALLERGIES Start taking the following new medications: Prednisone (Prednisone) 10 MG TABLET 0 ORAL DAILY Qty = 12 No Refills Instructions: 06/19-06/20 40 MG 06/21-06/22 20 MG stop
--- NOTE | 2017-06-17 11:10 | PN- Pulmonary ---
Subjective HPI/Critical Care Issues: Patient seen and examined this morning. She appears to be doing somewhat better but has significant shortness of breath with exertion Objective Current Medications: Current Medications Sig/Tao Start time Last Medication Dose Route Stop Time Status Admin Acetaminophen 650 MG Q6P PRN 06/110 AC PO Albuterol Sulfate 3 ML EVERY 4 HRS/AWAKE 06/12 1200 AC 06/17 INH 0905 Amoxicillin/ 875 MG Q12 06/14 1000 AC 06/17 Clavulanate Potassium PO 06/170 0856 Benzocaine/Menthol 1 TAMAR Q2P PRN 06/11 1915 AC 06/11 PO 2232 Budesonide/ 2 PUF BID 06/11 220 AC 06/17 Formoterol Fumarate INH 0858 Enoxaparin Sodium 40 MG DAILY@2100 06/11 2121 AC SC Guaifenesin 600 MG .STK-MED ONE 06/16 2037 DC PO 06/16 203 Guaifenesin 600 MG Q12 PRN 06/12 1345 AC 06/16 PO 2059 Loratadine 10 MG DAILY 06/12 1000 AC 06/17 PO 0857 Losartan Potassium 50 MG DAILY 06/11 2315 AC 06/17 PO 0857 Melatonin 5 MG AT BEDTIME 06/14 2115 AC 06/16 PO 2059 Morphine Sulfate 2 MG Q4P PRN 06/16 0915 DC IV Prednisone 60 MG DAILY 06/16 1000 AC 06/17 PO 0857 Tiotropium [place] 1 PUF DAILY 06/12 1000 AC 06/17 INH 0858 Tramadol HCl 25 MG Q6P PRN 06/16 1600 AC PO Verapamil HCl 360 MG DAILY 06/11 2315 AC 06/17 PO 0856 Vital Signs & I&O Last 24 Hrs of Vitals and I&O: Vital Signs Date Time Temp Pulse Resp B/P B/P Pulse O2 O2 Flow FiO2 Mean Ox Delivery Rate 06/17 0905 97 Nasal 2.0L Cannula 06/17 0857 78 162/74 06/17 0856 78 162/74 06/17 0800 94 Nasal 2.0L Cannula 06/17 0605 97.6 78 26 162/74 94 Nasal Cannula 06/17 0043 97 Nasal 2.0L Cannula 06/17 0000 96 Nasal 2.0L Cannula 06/16 2221 97.3 64 20 122/50 96 Nasal 2.0L Cannula 06/16 1629 97 Nasal 1.0L Cannula 06/16 1336 98.1 108 22 150/60 93 Nasal 2.0L Cannula Intake & Output 06/17 1600 06/17 0800 06/17 0000 Intake Total 240 100 Output Total 400 Balance 240 100 -400 Intake, Oral 240 100 Output, Urine 400 Patient 155 lb Weight Exam Other Physical Findings: Generally - Awake, alert Head and neck - normocephalic, atraumatic, EOMI grossly intact Cardiovascular - S1, S2, no murmurs, rubs or gallops Lungs -bilateral rhonchi Abdomen - Bowel sounds positive, soft, non-tender Extremities - without edema Impression/Plan Impression/Plan Impression/Plan: Impression 77-year-old woman * Acute exacerbation of COPD likely secondary to tracheobronchitis * History of lung cancer with lung nodules Plan -DC planning -TRC/nebs -prednisone to 60 mg daily for 3 days, 50 mg daily for 3 days, 40 mg daily for 3 days, 30 mg daily for 3 days, 20 mg daily for 3 days, 20 mg daily for 3 days, 10 mg daily for 3 days, then stop. -Continue Mucinex -Continue Spiriva and Symbicort -Please obtain records from her primary social work lecturer Dr. Nichols -Discharge planning within 24 hrs -Assess oxygen needs ambulatory -We'll require previous CAT scan imaging from her oncologist at [facility], based on this she will require follow-up for her pulmonary nodules DVT prophylaxis at all times
[2017-06-17 15:08] VITALS: BP 120/70
[2017-06-17 22:51] VITALS: BP 138/70
--- NOTE | 2017-06-18 07:12 | PN- Housestaff ---
Bladimir VELA,[facility] 06/18/17 0712: Subjective Follow-up For: COPD exacerbation Community-acquired pneumonia Sinus tachycardia Hyponatremia Tele-Events Since Last Visit: Off telemetry Subjective: Patient comtiues to be Short of breath. Feels frustrated. Review of Systems Constitutional: Reports: no symptoms. EENTM: Reports: no symptoms. Cardiovascular: Reports: orthopena, palpitations. Respiratory: Reports: cough, short of breath. Gastrointestinal: Reports: no symptoms. Genitourinary: Reports: no symptoms. Musculoskeletal: Reports: no symptoms. Skin: Reports: no symptoms. Neurological/Psychological: Reports: no symptoms. Hematologic/Endocrine: Reports: no symptoms. Immunologic/Allergic: Reports: no symptoms. Objective Last 24 Hrs of Vital Signs/I&O Vital Signs Date Time Temp Pulse Resp B/P B/P Pulse O2 O2 Flow FiO2 Mean Ox Delivery Rate 06/18 1457 97.9 88 20 110/50 95 Nasal Cannula 06/18 1455 98.8 60 20 110/50 100 Nasal Cannula 06/18 1101 Nasal 2.0L Cannula 06/18 0934 81 142/74 06/18 0933 81 142/74 06/18 0900 96 Nasal 2.0L Cannula 06/18 0820 95 Room Air 06/18 0717 98.1 81 18 142/74 96 Nasal Cannula 06/18 0336 99 Nasal 2.0L Cannula 06/18 0000 Nasal 2.0L Cannula 06/17 2251 98.1 92 18 138/70 97 Nasal Cannula 06/17 1620 96 Room Air Room Air 06/17 1600 93 Nasal 2.0L Cannula 06/17 1508 98.6 95 20 120/70 93 Intake & Output 06/18 1600 06/18 0800 06/18 0000 Intake Total 1470 120 480 Output Total 700 Balance 1470 120 -220 Intake, IV 0 Intake, Oral 1470 120 480 Number 0 Bowel Movements Output, Urine 700 Physical Exam General Appearance: Alert, Oriented X3, Cooperative Skin: No Rashes, No Breakdown Cardiovascular: Regular Rate, Normal S1, Normal S2 Lungs: decreased breath sounds Abdomen: Normal Bowel Sounds, Soft, No Tenderness Extremities: No Clubbing, No Cyanosis, No Edema Current Medications: Current Medications Sig/Tao Start time Last Medication Dose Route Stop Time Status Admin Acetaminophen 650 MG Q6P PRN 06/11 2130 AC PO Albuterol Sulfate 3 ML EVERY 4 HRS/AWAKE 06/12 1200 AC 06/18 INH 1152 Amoxicillin/ 875 MG Q12 06/14 1000 DC 06/17 Clavulanate Potassium PO 06/17 Benzocaine/Menthol 1 TAMAR Q2P PRN 06/11 1915 AC 06/11 PO 2232 Budesonide/ 2 PUF BID 06/11 220 AC 06/18 Formoterol Fumarate INH 0806 Enoxaparin Sodium 40 MG DAILY@2100 06/11 2122 AC SC Guaifenesin 600 MG Q12 06/17 2200 AC 06/18 PO 0806 Guaifenesin 600 MG Q12 PRN 06/12 1345 DC 06/17 PO 06/17 2159 1306 Loratadine 10 MG DAILY 06/12 1000 AC 06/18 PO 0805 Losartan Potassium 50 MG DAILY 06/11 231 AC 06/18 PO 0934 Melatonin 5 MG AT BEDTIME 06/14 211 AC 06/17 PO 2108 Prednisone 40 MG DAILY 06/19 1000 AC PO Prednisone 60 MG DAILY 06/16 1000 DC 06/18 PO 0805 Tiotropium [place] 1 PUF DAILY 06/12 1000 AC 06/18 INH 0806 Tramadol HCl 25 MG Q6P PRN 06/16 1600 AC PO Verapamil HCl 360 MG DAILY 06/11 231 AC 06/18 PO 0933 Last 24 Hrs of Lab/Angel Results Last 24 Hrs of Labs/Mics: Laboratory Tests 06/18/17 0816: Anion Gap 10, Estimated GFR > 60, BUN/Creatinine Ratio 25.7 H Assessment/Plan Assessment: Mrs. Jeffrey is a 77-year-old lady with past medical history significant for COPD, asthma, hypertension and lung cancer status post resection(2015) presents with shortness of breath and cough which started this morning. A/P; 1. COPD exacerbation likely secondary to pneumonia 2. Sinus Tachycardia 3. Hyponatremia 4. Hypertension - Patient completed a seven-day course of Augmentin for pneumonia. - Because of the steroid induced agitation and anxiety, will taper prednisone quickly. - Continues to be on 2 L of oxygen because of significance shortness of breath on exertion. Patient will be discharged to a pulmonary rehabilitation facility today. - continue Spiriva and symbicort. - Mucinex as needed for cough and congestion. - Hyponatremia resolved. - Continue Cozar and verapamil for hypertension and tachycardia respectively. DVT Prophylaxis; S/C Lovenox Patient is DNR/DNI Problem List: 1. Pneumonia 2. Tachycardia 3. Hyponatremia Pain Ratin Pain Location: None Pain Goal: Remain pain free Pain Plan: None Tomorrow's Labs & Rationales: None Annemarie VELA,[place] 06/18/17 1049: Attending Review Statement Attending Statement Attending MD Statement: examined this patient, discuss w/resident/PA/TELEPHONE ORDER CLERK, agreed w/resident/PA/TELEPHONE ORDER CLERK, reviewed EMR data (avail), discussed with nursing, discussed with case mgmt, amended to note Attending Assessment/Plan: Patient seen and examined. Lying in bed and not in any acute distress. She reports that she had a better night. She however reports that she did wake up on one occasion anxious and agitated to complain of difficulty breathing. She did improve all is able to get back to sleep. She reports that she is getting agitated because of the prednisone she is taking. On examination she is not in any respiratory distress she has adequate entry bilaterally with no added sounds. She is currently saturating 96% on 2 L of oxygen. Yesterday nursing staff reported that she desaturated down to 87% on room air while ambulating. Recommendations: -Patient has completed her antibiotic course for presumed pneumonia. -She is on prednisone therapy for acute exacerbation of COPD secondary to tracheobronchitis per the pulmonology service. -Due to anxiety brought about by the prednisone I recommend tapering down a little faster. She will be started on prednisone 40 mg orally tomorrow. After 2 days we will transition to 20 mg orally for another 2 days and stop. - She reports significant shortness of breath when ambulating.Patient is agreeable to be discharged to a snf facility with pulmonary rehabilitation capabilities. She is medically stable to be discharged once a bed is available.
[2017-06-18 07:17] VITALS: BP 142/74
--- NOTE | 2017-06-18 08:33 | Discharge Summary ---
Visit Information Visit Dates Admission Date: 06/11/17 Discharge Date: 06/18/17 Hospital Course Course Attending Physician: Medina Sharpe MD Primary Care Physician: Monika Roca MD, I. Consulting Request: 1 Consulting Specialty: Cardiology Consulting Physician: Dr. Ruiz Reason for Consult: sinus tachycardia Consulting Request: 2 Consulting Specialty: Pulmonary Disease Consulting Physician: Dr. Samayoa Reason for Consult: COPD exacerbation/tracheo bronchitis Hospital Course: Mrs. Jeffrey is a 77-year-old lady with a past medical history significant for COPD, asthma, tachycardia on verapamil, hypertension and lung cancer status post resection (2015). She presented with shortness of breath and cough which started on the morning of presentation. According to the patient, she was in her usual state of health until the morning of presentation when she started having cough with clear color sputum production. Around afternoon, she was going upstairs when she all of a sudden she started feeling short of breath and weak. She felt something was wrong with her so instead of using her inhalers/nebulizers she went to the urgent care clinic where she was given a nebulizer treatment and was sent to the [facility] ER. She also reported sore throat but denied any fever/chills, orthopnea, PND, sick contacts, recent travel or new rash. She did receive her flu like vaccine this year. Of note, patient was diagnosed with acute bronchitis 2 weeks prior to presentation and completed a course of azithromycin and prednisone. Vital signs in the ER showed temperature of 98.4F, pulse of 125 bpm, respiratory rate 19, blood pressure 155/97 mmHg, pulse oximetry of 94% on room air. Physical Exam at presentation General Appearance: Alert, Oriented X3, Cooperative, mild respiratory distress Skin: No Rashes, No Breakdown HEENT: Atraumatic, PERRLA, EOMI, Mucous Membr. moist/pink, pharynx erythematous Neck: Supple, No JVD, No thryomegaly Cardiovascular: Regular Rate, Normal S1, Normal S2 Lungs: Clear to Auscultation, decreased breath sounds and fine crepitations in left lung base Abdomen: Normal Bowel Sounds, Soft, No Tenderness Extremities: No Clubbing, No Cyanosis, No Edema, Normal Pulses Labs were significant for hyponatremia with sodium 128, potassium 4.7, creatinine 0.7, lactic acid 1, troponin<0.01. D-dimer negative at 201. CBC shows WBC of 7.4, hemoglobin 13.5, platelet 253. Rapid flu test was negative as well as blood cultures. Chest x-ray showed bibasilar atelectasis and elevation of the right hemidiaphragm. A CT angiogram scan of her chest was negative for any pulmonary embolism, but did show emphysema with a left upper lobe 6mm pleural-based nodule that appeared stable when compared to her prior imaging reports obtained from her previous continuous improvement coach Dr. Nichols. She was admitted for treatment of pneumonia,hyponatremia, sinus tachycardia and a COPD exacerbation. On account of an allergic reaction to IV ceftriaxone given in the emergency room, she was treated with IV Unasyn which was switched to by mouth Augmentin to complete a total of 7 days of treatment. She was evaluated for sinus tachycardia by program therapist Dr. Ruiz. An echocardiogram was obtained which showed a hyperdynamic ejection fraction of 80% with impaired left ventricular relaxation and elevated pulmonary artery systolic pressure of 43 mmHg. It was felt that her tachycardia was related to her beta agonist nebulizer therapy and anxiety. She was also treated with IV Solu-Medrol on account of intermittent episodes of shortness of breath while on admission. IV steroid was changed to by mouth prednisone. However patient continued to experience intermittent episodes of shortness of breath usually at night while patient was lying down. These episodes were associated with significant anxiety which was thought to be worsened by steroid therapy. She was reviewed by continuous improvement coach Dr. Samayoa and the patient was placed on a prednisone slow taper in addition to nebulizer therapy and treatment with Mucinex, spiriva and symbicort. However she continued to require intermittent oxygen 2 L/m by nasal cannula and feelings of shortness of breath. She was eventually discharged for pulmonary rehabilitation. Allergies: Coded Allergies: ceftriaxone (From ROCEPHIN) (Severe, SWELLING ALL OVER, DARK RED ALL OVER, DYSPNEA 06/11/17) cefuroxime (From CEFTIN) (Severe, BODY SWELLING AND DARK RED ALL OVER, DYSPNEA 06/11/17) ciprofloxacin (From CIPRO) (Severe, SWELLING ALL OVER, DARK RED ALL OVER, DYSPNEA 06/11/17) gemifloxacin (From FACTIVE) (Intermediate, HIVES 06/11/17) aspirin (Mild, BLOODY NOSE 06/11/17) Disposition Summary Disposition Principal Diagnosis: 1. Right lower lobe pneumonia, community acquired 2. Hyponatremia 3. Sinus tachycardia 4. COPD exacerbation and tracheobronchitis Additional Diagnosis: 5. Anxiety Discharge Disposition: SNF Discharge Instructions General Discharge Information Code Status: Do Not Resucitate/Intubat Patient's Diet: Heart healthy diet Patient's Activity: Self-limited activity Follow-Up Instructions/Appts: Please follow-up with your PCP within a week after discharge. Please follow-up with the program therapist within a week after discharge. Please follow-up with your continuous improvement coach within a week after discharge. A 6 mm pulmonary nodule was noticed on your CAT scan, which needs to be monitored. Medications at Discharge Discharge Medications: Continue taking these medications: Olmesartan Medoxomil (Benicar) 40 MG TABLET 1 Tablet ORAL DAILY Qty = 90 Comments: NOT GIVEN IN HOSPITAL Verapamil HCl (Verapamil HCl) 360 MG CAP24H.PEL 1 Capsule ORAL DAILY Qty = 90 Comments: Last Taken: 06/18/17 Time: 0930 AM Tiotropium [place] (Spiriva Respimat) 1.25 MCG/ACTUATION MIST.INHAL 1 PUFF Inhale through mouth DAILY Qty = 8 Comments: Last Taken: 06/18/17 Time: 0800 AM Levalbuterol Tartrate (Xopenex Hfa) 45 MCG/ACTUATION HFA.AER.AD 2 Puff Inhale through mouth As Directed as needed for ASTHMA/COPD Qty = 45 Comments: NOT GIVEN IN HOSPITAL Levalbuterol HCl (Xopenex) 0.63 MG/3 ML VIAL.NEB 1 Vial Inhale Solution THREE TIMES DAILY as needed for WHEEZING Qty = 72 Comments: NOT GIVEN IN HOSPITAL Budesonide/Formoterol Fumarate (Symbicort 160-4.5 Mcg Inhaler) 160 MCG-4.5 MCG/ ACTUATION HFA.AER.AD 2 Puff Inhale through mouth TWICE DAILY Qty = 30 Comments: Last Taken: 06/18/17 Time: 0800 AM Cetirizine HCl (All Day Allergy) 10 MG TABLET 1 Tablet ORAL DAILY as needed for ALLERGIES Comments: CLARITIN GIVEN Last Taken: 06/18/17 Time: 0800 AM Start taking the following new medications: Prednisone (Prednisone) 10 MG TABLET 0 ORAL DAILY Qty = 12 No Refills Instructions: 06/19-06/20 40 MG 06/21-06/22 20 MG stop Comments: Last Taken: 06/18/17 Time: 0800 AM Copies To: Abelino VELA,Monika Shabazz; Joseph VELA PHD,Carlos Cintron; Yao VELA,Catarino Attending MD Review Statement Documenting Attending: Medina Sharpe MD Other Findings: Discharged in stable condition
--- NOTE | 2017-06-18 12:39 | PN- Pulmonary ---
Subjective HPI/Critical Care Issues: pt seen and examined transferred from [facility] Objective Current Medications: Current Medications Sig/Tao Start time Last Medication Dose Route Stop Time Status Admin Acetaminophen 650 MG Q6P PRN 06/11 2130 AC PO Albuterol Sulfate 3 ML EVERY 4 HRS/AWAKE 06/12 1200 AC 06/18 INH 1152 Amoxicillin/ 875 MG Q12 06/14 1000 DC 06/17 Clavulanate Potassium PO 06/17 2200 2108 Benzocaine/Menthol 1 TAMAR Q2P PRN 06/11 1915 AC 06/11 PO 2232 Budesonide/ 2 PUF BID 06/11 2200 AC 06/18 Formoterol Fumarate INH 0806 Enoxaparin Sodium 40 MG DAILY@2100 06/11 212 AC SC Guaifenesin 600 MG Q12 06/17 2200 AC 06/18 PO 0806 Guaifenesin 600 MG Q12 PRN 06/12 1345 DC 06/17 PO 06/17 2159 1306 Loratadine 10 MG DAILY 06/12 1000 AC 06/18 PO 0805 Losartan Potassium 50 MG DAILY 06/11 2315 AC 06/18 PO 0934 Melatonin 5 MG AT BEDTIME 06/14 2115 AC 06/17 PO 2108 Prednisone 60 MG DAILY 06/16 1000 AC 06/18 PO 0805 Tiotropium [place] 1 PUF DAILY 06/12 1000 AC 06/18 INH 0806 Tramadol HCl 25 MG Q6P PRN 06/16 1600 AC PO Verapamil HCl 360 MG DAILY 06/11 2315 AC 06/18 PO 0933 Vital Signs & I&O Last 24 Hrs of Vitals and I&O: Vital Signs Date Time Temp Pulse Resp B/P B/P Pulse O2 O2 Flow FiO2 Mean Ox Delivery Rate 06/18 1101 Nasal 2.0L Cannula 06/18 0934 81 142/74 06/18 0933 81 142/74 06/18 0900 96 Nasal 2.0L Cannula 06/18 0820 95 Room Air 06/18 0717 98.1 81 18 142/74 96 Nasal Cannula 06/18 0336 99 Nasal 2.0L Cannula 06/18 0000 Nasal 2.0L Cannula 06/17 2251 98.1 92 18 138/70 97 Nasal Cannula 06/17 1620 96 Room Air Room Air 06/17 1600 93 Nasal 2.0L Cannula 06/17 1508 98.6 95 20 120/70 93 Intake & Output 06/18 1600 06/18 0800 06/18 0000 Intake Total 300 120 480 Output Total 700 Balance 300 120 -220 Intake, Oral 300 120 480 Output, Urine 700 Exam Other Physical Findings: Generally - Awake, alert Head and neck - normocephalic, atraumatic, EOMI grossly intact Cardiovascular - S1, S2, no murmurs, rubs or gallops Lungs -bilateral rhonchi Abdomen - Bowel sounds positive, soft, non-tender Extremities - without edema Results Last 24 Hrs of Lab Results: Laboratory Tests 06/18/17 0816: Anion Gap 10, Estimated GFR > 60, BUN/Creatinine Ratio 25.7 H Impression/Plan Impression/Plan Impression/Plan: Impression 77-year-old woman * Acute exacerbation of COPD likely secondary to tracheobronchitis * History of lung cancer with lung nodules Plan -DC planning -TRC/nebs -prednisone to 60 mg daily for 3 days, 50 mg daily for 3 days, 40 mg daily for 3 days, 30 mg daily for 3 days, 20 mg daily for 3 days, 20 mg daily for 3 days, 10 mg daily for 3 days, then stop. -Continue Mucinex -Continue Spiriva and Symbicort -Please obtain records from her primary gill box operator Dr. Nichols -Discharge planning - pt wishes for rehab -Assess oxygen needs ambulatory -We'll require previous CAT scan imaging from her oncologist at [facility], based on this she will require follow-up for her pulmonary nodules DVT prophylaxis at all times
[2017-06-18] MEDS ORDERED: PREDNISONE10 M2 PO ×2 (13:31→13:35)
[2017-06-18 14:55] VITALS: BP 110/50
[2017-06-18 14:57] VITALS: BP 110/50
[2017-06-18 15:24] VITALS: BP 110/50
== END 2017-06-18 16:12 | DRG 190 ==
LOC: ERH 15:09 → 1NO 17:17 → ERHI 17:17 → ENRESERV 18:59 → ENTRNSPT 21:01 → EDTRNSPTSTS 21:10 → 1NO 21:31 → CMPTRNSPT 21:47 → 1NO 22:40 → ENTRNSPT 06-18 09:17 → EDTRNSPT 06-18 09:26 → EDTRNSPTSTS 06-18 09:26 → 2NB 06-18 09:40 → CMPTRNSPT 06-18 09:57 → ENPENDDIS 06-18 14:34 → 2NB 06-18 16:12
PROVIDERS: Internal Medicine; Physician Assistant
DX: J44.0 Chronic obstructive pulmonary disease with (acute) lower respiratory infection (principal); J18.9 Pneumonia, unspecified organism; I27.20 Pulmonary hypertension, unspecified; E87.1 Hypo-osmolality and hyponatremia; I07.1 Rheumatic tricuspid insufficiency; J44.1 Chronic obstructive pulmonary disease with (acute) exacerbation; R00.0 Tachycardia, unspecified; I10 Essential (primary) hypertension; Z85.118 Personal history of other malignant neoplasm of bronchus and lung; Z90.2 Acquired absence of lung [part of]; Z88.6 Allergy status to analgesic agent; Z88.1 Allergy status to other antibiotic agents; Z79.51 Long term (current) use of inhaled steroids; Z79.52 Long term (current) use of systemic steroids; Z87.891 Personal history of nicotine dependence; R91.8 Other nonspecific abnormal finding of lung field; I44.0 Atrioventricular block, first degree; F41.9 Anxiety disorder, unspecified
CPT/HCPCS: 1NP; 1NSP; 84133; 84300; 36415; 36592; 71045; 81001; 82436; 82570; 87040; 87070; 87086; 87804; 87804-59; 93005; 93010; 93306; 96374; 96375; 99291; J0456; J0696; J1200; J1650; J2920; J2930; J3490; J7060